=== PATIENT | male | born 1985 | race Hispanic/Latino ===

== ENCOUNTER 2017-01-21 19:30 | Emergency (ER) | payer BC, SELFPAY ==
--- NOTE | 2017-01-21 19:39 | ED.PDOC ---
History of Present Illness - General Chief Complaint: Fever Stated Complaint: fever and headache Time Seen by Provider: 01/21/17 19:36 Source: patient, RN notes reviewed, Vital Signs reviewed Exam Limitations: no limitations Additional Information: Patient with several days of URI symptoms. Pt is nontoxic and in no respiratory distress. He has tried some [place] for relief and Tylenol - last dose at 0900. Pt tolerating PO. - History of Present Illness Timing/Duration: 1 week - about 5 to 7 days Severity: mild Improving Factors: medication Worsening Factors: nothing Associated Symptoms: cough, fever/chills, malaise Allergies/Adverse Reactions: Allergies Ibuprofen [From Advil] Allergy (Verified 01/21/17 19:43) Naproxen [From Aleve] Allergy (Verified 01/21/17 19:43) Home Medications: Ambulatory Orders NK [NK] 01/21/17 Review of Systems - Review of Systems Constitutional: States: chills, fever EENTM: States: nose congestion, throat pain Respiratory: States: cough - , occasional Cardiology: States: no symptoms reported Gastrointestinal/Abdominal: States: no symptoms reported Genitourinary: States: no symptoms reported Musculoskeletal: States: no symptoms reported Skin: States: no symptoms reported Neurological: States: no symptoms reported Endocrine: States: no symptoms reported Hematologic/Lymphatic: States: no symptoms reported Family Medical History - Family History Mother Family History: No Known Living Status: Still Living Father Family History: No Known Living Status: Still Living Physical Exam - Physical Exam General Appearance: Alert, Comfortable, No apparent distress, Well Developed, Well Groomed, Well Hydrated, Well Nourished Eye Exam: bilateral normal Ears, Nose, Throat: hearing grossly normal, abnormal TM (R) - slightly erythematous. Not bulging. No pus behind eardrum., sinus pain/drainage, nasal congestion, other - postnasal drip on exam. 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 Stable for discharge home with recommendation for Pt to take Tylenol Cold and Sinus for symptom management. Pt given strict return precautions. - Results/Orders Results/Orders: Microbiology 01/21/17 19:35 Nose - Final Rapid Flu negative 01/21/17 01/21/17 01/21/17 19:35 20:46 21:10 Temperature 99.5 F Pulse Rate [ 69 76 75 monitor] Respiratory 18 18 18 Rate Blood Pressure 131/77 115/75 110/72 [Right Arm] O2 Sat by Pulse 97 95 95 Oximetry Departure - Departure Clinical Impression: Upper respiratory infection Qualifiers: URI type: unspecified viral URI Qualified Code(s): J06.9 - Acute upper respiratory infection, unspecified Time of Disposition: 21:10 Disposition: Discharge to Home or Self Care Condition: Good Departure Forms: ED Discharge - Pt. Copy, Patient Portal Self Enrollment Instructions: DI for Viral Upper Respiratory Infection -- Adult Referrals: Gisela Hernandez NP [Primary Care Provider] - 1-2 Weeks Home Medications: Ambulatory Orders NK [NK] 01/21/17 Additional Instructions: Stay well hydrated. Use Tylenol cold and sinus as directed on label.
[2017-01-21 19:43] VITALS: TEMP 99.5
[2017-01-21] MEDS ORDERED: DEXAMETHASONE INJ 10 MG/ML VIAL IM ONE (19:55)
[2017-01-21 20:47] VITALS: O2SAT 95
[2017-01-21 23:10] VITALS: BP 110/72
== END 2017-01-21 21:10 | disposition home or self-care (01) ==
LOC: ER 19:30
DX: J06.9 Acute upper respiratory infection, unspecified (principal); Z88.6 Allergy status to analgesic agent
CPT/HCPCS: 87502; J1100

== ENCOUNTER 2017-12-18 22:00 | Emergency (ER) | payer BC ==
--- NOTE | 2017-12-18 22:22 | ED.PDOC ---
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 HE HAS NOT EXPERIENCED ANY EXERTIONAL CHEST PAIN - History of Present Illness Timing/Duration: 4-6 hours Severity: mild Improving Factors: nothing Worsening Factors: nothing Associated Symptoms: chest pain Allergies/Adverse Reactions: Allergies Ibuprofen [From Advil] Allergy (Verified 12/18/17 23:29) Naproxen [From Aleve] Allergy (Verified 12/18/17 23:29) Home Medications: Ambulatory Orders NK [NK] 01/21/17 Review of Systems - Review of Systems Constitutional: States: no symptoms reported EENTM: States: no symptoms reported Respiratory: States: no symptoms reported Cardiology: States: see HPI Gastrointestinal/Abdominal: States: no symptoms reported Genitourinary: States: no symptoms reported Musculoskeletal: States: no symptoms reported Skin: States: no symptoms reported Neurological: States: no symptoms reported Endocrine: States: no symptoms reported Past Medical History (General) - Patient Medical History Hx Seizures: No Hx Stroke: No Hx Dementia: No Hx Asthma: No Hx of COPD: No Hx Cardiac Disorders: No Hx Congestive Heart Failure: No Hx Pacemaker: No Hx Hypertension: No Hx Thyroid Disease: No Hx Diabetes: No Hx Gastroesophageal Reflux: No Hx Renal Disease: No Hx Cancer: No Hx of HIV: No Hx Hepatitis C: No Hx MRSA: No - Vaccination History Hx Tetanus, Diphtheria Vaccination: No Hx Influenza Vaccination: No - Social History Hx Tobacco Use: No Hx Chewing Tobacco Use: No Hx Alcohol Use: Yes - social Hx Substance Use: No Hx Substance Use Treatment: No Hx Depression: No Hx Physical Abuse: No Hx Emotional Abuse: No Hx Suspected Abuse: No Family Medical History - Family History Mother Family History: No Known Living Status: Still Living Father Family History: No Known Living Status: Still Living Physical Exam - Physical Exam General Appearance: Alert, Comfortable Ears, Nose, Throat: hearing grossly normal, normal ENT inspection, normal pharynx Neck: non-tender, full range of motion, supple Respiratory: chest non-tender, lungs clear, normal breath sounds, no respiratory distress, no accessory muscle use Cardiovascular/Chest: normal peripheral pulses, regular rate, rhythm, no edema, no gallop, no JVD, no murmur Peripheral Pulses: radial,right: 2+, radial,left: 2+, femoral,right: 2+, femoral ,left: 2+, popliteal,right: 2+, popliteal,left: 2+, dorsalis pedis,right: 2+, dorsalis pedis,left: 2+, posterior tibialis,right: 2+, posterior tibialis,left: 2+ Gastrointestinal/Abdominal: normal bowel sounds, non tender, soft, no organomegaly, no pulsatile mass Back Exam: normal inspection, no CVA tenderness, no vertebral tenderness Extremity: normal range of motion, non-tender, normal inspection, no pedal edema 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, no motor/sensory deficits, alert, normal mood/affect, oriented x 3 Progress - Results/Orders Results/Orders: EKG NSR RATE 65 / MIN NO ACUTE ST T CHANGES NORMAL AXIS KS 148 MS RATE 65 / MIN QRS 90 MS Laboratory Tests 12/18/17 22:38 WBC 8.0 RBC 4.61 L Hgb 13.8 L Hct 40.2 L MCV 87.1 MCH 29.9 MCHC 34.3 RDW 13.2 Plt Count 324 MPV 7.3 L Absolute Neuts (auto) 3.70 Absolute Lymphs (auto) 3.00 Absolute Monos (auto) 0.80 Absolute Eos (auto) 0.50 H Absolute Basos (auto) 0.10 Neutrophils % 45.7 Lymphocytes % 37.2 Monocytes % 10.4 H Eosinophils % 5.9 H Basophils % 0.8 PT 10.7 INR 1.07 PTT (SP) 27.9 Sodium 143 Potassium 3.7 Chloride 109 Carbon Dioxide 28 Anion Gap 9.7 L BUN 17 Creatinine 0.79 BUN/Creatinine Ratio 21.5 H Random Glucose 112 H Serum Osmolality 287.3 Calcium 9.2 Magnesium 2.1 Total Bilirubin 0.3 Direct Bilirubin < 0.1 Indirect Bilirubin 0.2 AST 26 ALT 30 Alkaline Phosphatase 103 Creatine Kinase 310 H* CK-MB (CK-2) 2.3 CK-MB (CK-2) % Not Reportable Troponin I < 0.02 Serum Total Protein 7.3 Albumin 4.0 - EKG/XRAY/CT EKG: Sinus Departure - Departure Clinical Impression: Chest pain, Intermittent palpitations Time of Disposition: 00:17 Disposition: Discharge to Home or Self Care Condition: Good Departure Forms: ED Discharge - Pt. Copy, Patient Portal Self Enrollment Instructions: DI for Chest Pain Diet: low fat, low cholesterol Referrals: Yanni Flores NP [Primary Care Provider] - 1-2 Weeks Home Medications: Ambulatory Orders NK [NK] 01/21/17
[2017-12-18] MEDS ORDERED: LORazepam 0.5 MG TAB PO ONE (22:25)
[2017-12-18] MEDS ORDERED: ASPIRIN (CHEWABLE) 81 MG TAB PO ONE (22:26)
--- NOTE | 2017-12-18 22:39 | RAD ---
EXAM DESCRIPTION: Chest,1 View CLINICAL HISTORY: 32 years Male R/O PNEUMONIA COMPARISON: None. FINDINGS: The cardiomediastinal silhouette appears unremarkable. No consolidating infiltrates or pleural effusions. No pneumothorax. IMPRESSION: No acute abnormality is identified. Electronically signed by: Heron Johnson MD 12/18/2017 10:38 PM CDT
[2017-12-19 00:21] VITALS: BP 113/67; TEMP 98; O2SAT 100
== END 2017-12-19 00:26 | disposition home or self-care (01) ==
LOC: ER 22:00
DX: R07.9 Chest pain, unspecified (principal); R00.2 Palpitations; R20.0 Anesthesia of skin; Z88.6 Allergy status to analgesic agent; Z82.49 Family history of ischemic heart disease and other diseases of the circulatory system

== ENCOUNTER 2018-05-29 14:22 | Emergency (ER) | payer BC, OTHER ==
[2018-05-29 14:40] VITALS: TEMP 97.2
[2018-05-29] MEDS ORDERED: LIDOCAINE 1% W/ EPINEPHRINE 20 ML VIAL INJ ONE (14:47)
--- NOTE | 2018-05-29 14:52 | ED.PDOC ---
History of Present Illness - General Chief Complaint: Laceration Stated Complaint: laceration to head Time Seen by Provider: 05/29/18 14:49 Source: patient Exam Limitations: no limitations - History of Present Illness Initial Comments: Patient says he was at work and hit his head on a metal beam. He did not fall down nor lose consciousness but he sustained a laceration on the apex of the head. It was bleeding a lot at first but has since stopped. He says he feels light-headed. No N/V. No other complaints. Timing/Duration: 1/2 hour Severity: moderate Improving Factors: nothing Worsening Factors: nothing Associated Symptoms: other - as in HPI Allergies/Adverse Reactions: Allergies Ibuprofen [From Advil] Allergy (Verified 12/18/17 23:29) Naproxen [From Aleve] Allergy (Verified 12/18/17 23:29) Home Medications: Ambulatory Orders Atorvastatin Calcium [Lipitor] 20 mg PO DAILY 05/29/18 Fluoxetine HCl [Prozac] 40 mg PO DAILY 05/29/18 Testosterone Cypionate 200 mg IM MONTHLY 05/29/18 Review of Systems - Review of Systems Constitutional: States: no symptoms reported EENTM: States: no symptoms reported Respiratory: States: no symptoms reported Cardiology: States: no symptoms reported Gastrointestinal/Abdominal: States: no symptoms reported Genitourinary: States: no symptoms reported Musculoskeletal: States: no symptoms reported Skin: States: see HPI Neurological: States: see HPI Endocrine: States: no symptoms reported Hematologic/Lymphatic: States: no symptoms reported Past Medical History (General) - Patient Medical History Hx Seizures: No Hx Stroke: No Hx Dementia: No Hx Asthma: No Hx of COPD: No Hx Cardiac Disorders: No Hx Congestive Heart Failure: No Hx Pacemaker: No Hx Hypertension: No Hx Thyroid Disease: No Hx Diabetes: No Hx Gastroesophageal Reflux: No Hx Renal Disease: No Hx Cancer: No Hx of HIV: No Hx Hepatitis C: No Hx MRSA: No Surgical History: no surgical history - Vaccination History Hx Tetanus, Diphtheria Vaccination: No Hx Influenza Vaccination: No - Social History Hx Tobacco Use: No Hx Chewing Tobacco Use: No Hx Alcohol Use: Yes - social Hx Substance Use: No Hx Substance Use Treatment: No Hx Depression: No Hx Physical Abuse: No Hx Emotional Abuse: No Hx Suspected Abuse: No Family Medical History - Family History Mother Family History: No Known Living Status: Still Living Father Family History: No Known Living Status: Still Living Physical Exam - Physical Exam General Appearance: Alert Eye Exam: bilateral normal Ears, Nose, Throat: hearing grossly normal, normal ENT inspection Neck: non-tender, full range of motion, supple Respiratory: lungs clear, normal breath sounds Cardiovascular/Chest: normal peripheral pulses, regular rate, rhythm, no edema Gastrointestinal/Abdominal: normal bowel sounds, non tender, soft Back Exam: normal inspection, no CVA tenderness Extremity: normal range of motion, non-tender, normal inspection 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 Hemostatic. Gala aponeurotica intact. No visible bone. Lymphatic: no adenopathy Progress - Progress Progress: 05/29/18 16:00 Area was prepped and draped in a sterile fashion. 7 cc of lidocaine with epinephrine was used to gain excellent local anesthesia. Irrigated with 30 cc sterile NS. 10 interrupted sutures using 4-0 proline were used to gain good wound edge approximation. Area was clean dry and hemostatic upon completion. Patient tolerated procedure well. CT head negative. Likely a Grade I concussion. E.R. warnings given. Care instructions given. Questions were elicited and answered. The patient voiced understanding and agreement with the plan. Departure - Departure Clinical Impression: Laceration, Concussion Disposition: Discharge to Home or Self Care Condition: Good Departure Forms: ED Discharge - Pt. Copy, Patient Portal Self Enrollment Instructions: DI for Laceration Repair, Concussion, Adult (DC) Diet: resume usual diet Activity: increase activity as tolerated Referrals: Yanni Flores NP [Primary Care Provider] - 1-2 Weeks Home Medications: Ambulatory Orders Atorvastatin Calcium [Lipitor] 20 mg PO DAILY 05/29/18 Fluoxetine HCl [Prozac] 40 mg PO DAILY 05/29/18 Testosterone Cypionate 200 mg IM MONTHLY 05/29/18 Additional Instructions: Tylenol and ice only for pain control. See your regular doctor or return to the E.R. in 10 days for suture removal. Return to the E.R. immediately for vomiting more than one time or if you develop new symptoms. Return to your regular doctor for a neurological check if symptoms are still present this weekend. If symptoms last more than one week, return to the E.R. for possible head imaging.
--- NOTE | 2018-05-29 15:23 | CT ---
EXAM DESCRIPTION: Head CLINICAL HISTORY: blunt trauma to skull COMPARISON: None available TECHNIQUE: Multiple axial images of the head without contrast. Multiplanar reformatted images. This exam was performed according to our departmental dose-optimization program, which includes automated exposure control, adjustment of the mA and/or kV according to patient size and/or use of iterative reconstruction technique. FINDINGS: There is no CT evidence of intracranial hemorrhage, mass effect, or large territory infarction. The brain parenchyma and ventricles are normal. There are no abnormal extra-axial fluid collections. Vascular structures are unremarkable. There is no acute calvarial defect. The visualized paranasal sinuses and the mastoids are clear. IMPRESSION: No CT evidence of an acute intracranial abnormality. Electronically signed by: Eliseo Cervantes MD 05/29/2018 3:22 PM [facility]
[2018-05-29] MEDS: TETANUS,DIPHTHERIA,PERTUSSIS 1 EA SYG IM ONE (15:48)
[2018-05-29] MEDS ORDERED: NEOMYCIN-BACITRACIN-POLYMYXIN 0.9 GM UD TOP ONE (15:48)
[2018-05-29 16:28] VITALS: BP 122/80; O2SAT 98
== END 2018-05-29 16:37 | disposition home or self-care (01) ==
LOC: ER 14:22
DX: S01.01XA Laceration without foreign body of scalp, initial encounter (principal); S06.0X0A Concussion without loss of consciousness, initial encounter; W22.09XA Striking against other stationary object, initial encounter; Y99.0 Civilian activity done for income or pay; Y92.69 Other specified industrial and construction area as the place of occurrence of the external cause; Z88.6 Allergy status to analgesic agent; Z23 Encounter for immunization

== ENCOUNTER 2018-06-12 20:01 | Emergency (ER) | payer OTHER ==
--- NOTE | 2018-06-12 20:26 | ED.PDOC ---
History of Present Illness - General Chief Complaint: Headache Stated Complaint: headache Time Seen by Provider: 06/12/18 20:06 Source: patient Exam Limitations: no limitations - History of Present Illness Initial Comments: Moody Hunt 33 y/o male with history of head contusion with scalp laceration after he stood up and head hit a metal beam sustaining laceration on his scalp which was treated here in ER and HEAD CT done on 29 may 2018 same as injury did not show acute intracranial abnormalities.Also after the incident had sharp intemittent headache at the vertex of his skull goes down to occipital area felt nauseated no vomiting,gets agitated easily and problems with sleep and concentration.Has scheduled MRI-Head tomorrow 13 June 2018 at 1330H Timing/Duration: other - 2 weeks Quality: moderate, sharp Head Injury Location: frontal Recent Head Trauma: occasional headaches, head trauma > 24 hrs ago Improving Factors: nothing Worsening Factors: nothing Associated Symptoms: other - see hpi Allergies/Adverse Reactions: Allergies Ibuprofen [From Advil] Allergy (Verified 12/18/17 23:29) Naproxen [From Aleve] Allergy (Verified 12/18/17 23:29) Home Medications: Ambulatory Orders Atorvastatin Calcium [Lipitor] 20 mg PO DAILY 05/29/18 Fluoxetine HCl [Prozac] 40 mg PO DAILY 05/29/18 Testosterone Cypionate 200 mg IM MONTHLY 05/29/18 Review of Systems - Review of Systems Constitutional: States: no symptoms reported EENTM: States: no symptoms reported Respiratory: States: no symptoms reported Cardiology: States: no symptoms reported Gastrointestinal/Abdominal: States: no symptoms reported Genitourinary: States: no symptoms reported Musculoskeletal: States: no symptoms reported Skin: States: no symptoms reported Neurological: States: no symptoms reported Endocrine: States: no symptoms reported All other Systems: Reviewed and Negative, No Change from Baseline Past Medical History (General) - Patient Medical History Hx Seizures: No Hx Stroke: No Hx Dementia: No Hx Asthma: No Hx of COPD: No Hx Cardiac Disorders: No Hx Congestive Heart Failure: No Hx Pacemaker: No Hx Hypertension: No Hx Thyroid Disease: No Hx Diabetes: No Hx Gastroesophageal Reflux: No Hx Renal Disease: No Hx Cancer: No Hx of HIV: No Hx Hepatitis C: No Hx MRSA: No Surgical History: no surgical history - Vaccination History Hx Tetanus, Diphtheria Vaccination: No Hx Influenza Vaccination: No - Social History Hx Tobacco Use: No Hx Chewing Tobacco Use: No Hx Alcohol Use: Yes - social Hx Substance Use: No Hx Substance Use Treatment: No Hx Depression: No Hx Physical Abuse: No Hx Emotional Abuse: No Hx Suspected Abuse: No Family Medical History - Family History Mother Family History: No Known Living Status: Still Living Hx Cardiac Disease: Yes - dad Father Family History: No Known Living Status: Still Living Physical Exam - Physical Exam General Appearance: Alert, Comfortable, No apparent distress Eyes, Ears, Nose, Throat Exam: PERRL/EOMI, normal ENT inspection, TMs normal, pharynx normal Neck: non-tender, full range of motion, supple, normal inspection, trachea midline Cardiovascular/Chest: normal peripheral pulses, regular rate, rhythm, no murmur Respiratory: lungs clear, normal breath sounds Gastrointestinal/Abdominal: non tender, soft, no organomegaly Back Exam: no CVA tenderness, no vertebral tenderness Extremity: no pedal edema, no calf tenderness 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, 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 Exam: normal hearing, normal speech, PERRL Coordination/Gait: negative Romberg's sign Motor/Sensory: no motor deficit, no sensory deficit, no pronator drift Skin Exam: warm/dry, normal color Progress - Progress Progress: 06/12/18 20:28 Vital Signs - 8 hr 06/12/18 20:13 Temperature 98.2 F Pulse Rate [ 69 Right] Respiratory 16 Rate Blood Pressure 117/81 [Left Arm] O2 Sat by Pulse 98 Oximetry 06/12/18 20:50 Patient was noted to be able to use mobile device Departure - Departure Clinical Impression: Post-concussion headache, History of closed head injury Time of Disposition: 20:46 Disposition: Discharge to Home or Self Care Condition: Fair Departure Forms: ED Discharge - Pt. Copy, Patient Portal Self Enrollment Instructions: DI for Headache, Concussion in Adults, Concussion, Adult (DC) Referrals: Yanni Flores NP [Primary Care Provider] - 1-2 Weeks Home Medications: Ambulatory Orders Atorvastatin Calcium [Lipitor] 20 mg PO DAILY 05/29/18 Fluoxetine HCl [Prozac] 40 mg PO DAILY 05/29/18 Testosterone Cypionate 200 mg IM MONTHLY 05/29/18 Additional Instructions: follow up with primary Md 14 June 2018 for recheck;may take Melatonin-10 mg (over the counter) at bedtime for sleep and continue with Doxylamine as directed; MRI-Head tomorrow as scheduled
[2018-06-12] MEDS ORDERED: PROMETHAZINE HCL INJ 25 MG/ML VIAL IM ONE (20:29)
[2018-06-12] MEDS ORDERED: DEXAMETHASONE INJ 10 MG/ML VIAL IM ONE (20:29)
[2018-06-12] MEDS ORDERED: BUTORPHANOL TARTRATE 2 MG/ML VIAL IM ONE (20:29)
[2018-06-12] MEDS ORDERED: HYDROCOD/APAP 5/325 (ER DISP) #3 TAB PO ONE (20:45)
[2018-06-12 21:06] VITALS: BP 111/73; TEMP 97.9; O2SAT 99
== END 2018-06-12 21:05 | disposition home or self-care (01) ==
LOC: ER 20:01
DX: G44.309 Post-traumatic headache, unspecified, not intractable (principal); F07.81 Postconcussional syndrome; Z88.6 Allergy status to analgesic agent
CPT/HCPCS: J0595; J1100; J2550

== ENCOUNTER → 2018-06-13 | Outpatient (CLI) | payer OTHER ==
--- NOTE | 2018-06-13 16:17 | MRI ---
EXAM DESCRIPTION: Brain w/o Contrast: MRI. CLINICAL HISTORY: F07.81 COMPARISON: CT scan of the head 05/29/2018. TECHNIQUE: Multiplanar, high-field MRI unit, multiple diffusion sequences, multiple conventional sequences without contrast. FINDINGS: Focal hyperintense FLAIR and T2-weighted signal in the left frontal subcortical white matter and the anterior right parietal subcortical white matter and posterior right frontal subcortical white matter. These foci are not associated with hemorrhage, mass effect, or diffusion restriction. There also may be a small periventricular white matter and lesion associated with the inferior right frontal horn. No hemorrhage, no cerebral edema, no mass effect, associated with bilateral cerebral hemisphere [place] matter and white matter. Normal signal in the bilateral basal ganglia. Normal signal in the brainstem and cerebellar hemispheres. No hemorrhage, no cerebral edema, no mass-effect. No diffusion restriction. Concordance of the diffusion and non-diffusion sequences with no diffusion restriction. Cortical sulci, ventricles, and other CSF spaces, and the subdural spaces are normally configured. No effacement or displacement. No midline shift. No extra-axial hemorrhage. Normal flow signal void in the major vessels of the native [place], and the venous sinuses. IACs are symmetric bilaterally. Normal signal in the bilateral mastoid air cells. No mass effect in the bilateral cerebellopontine angles. Pituitary gland occupies most of the sella. Base of the cerebellar tonsils is at the level of the foramen magnum. Polyp or mucous retention cyst on the medial wall of the inferior right maxillary antrum.. The bony calvarium is intact. IMPRESSION: 1. Small bilateral foci of white matter signal change. Not associated with hemorrhage, mass effect, or diffusion restriction. Differential includes sequela of migraines, demyelinating process, vasculitis, or early cerebral microvascular disease. Consider follow-up scan with gadolinium IV contrast. 2. Normal noncontrast MRI diffusion study with no evidence of acute or subacute infarction. 3. Polyp or cyst partially visualized on the inferior medial wall of the right maxillary antrum. Electronically signed by: Adrian Childress MD 06/13/2018 4:16 PM [employer]
== END ==
LOC: MRI 13:14
PROVIDERS: ATTEND General Practice
DX: F07.81 Postconcussional syndrome (principal)

== ENCOUNTER 2018-07-02 15:12 | Emergency (ER) | payer BC, OTHER ==
[2018-07-02] MEDS ORDERED: ONDANSETRON INJ 4 MG/2 ML VIAL IV ONE (15:54)
[2018-07-02] MEDS ORDERED: MORPHINE SULFATE INJ 10 MG/ML VIAL IV ONE (15:54)
--- NOTE | 2018-07-02 16:26 | RAD ---
EXAM DESCRIPTION: Chest,1 View CLINICAL HISTORY:33 years Male, CHEST PAIN Comparison: December 18, 2017 FINDINGS: No focal lung consolidation. No pleural effusion. No pneumothorax. Cardiac and mediastinal silhouette is unremarkable. No acute osseous abnormality. Soft tissues are unremarkable. IMPRESSION: No acute findings. No focal lung consolidation. Electronically signed by: Luis Astorga MD 07/02/2018 4:23 PM OFFICE ADMIN
--- NOTE | 2018-07-02 16:29 | CT ---
Study: CT cervical spine. Indication: LEFT ARM PAIN, HX OF RECENT HEAD INJURY Technique: Axial CT images were acquired through the cervical spine without intravenous contrast. Coronal and sagittal reformats performed. This exam was performed according to our departmental dose-optimization program, which includes automated exposure control, adjustment of the mA and/or kV according to patient size and/or use of iterative reconstruction technique. Comparison: None. Findings: Vertebral body height maintained. No acute fracture or subluxation. Multilevel cervical disc disease noted and most pronounced at C3-C4 where there is mild disc space height loss and a small disc osteophyte complex producing at least mild spinal canal narrowing. Minimal kyphosis centered at this level as well. Impression: No acute cervical fracture. Mild spinal canal narrowing suspected at C3-C4. Dedicated MRI could better evaluate as clinically indicated. Mild kyphosis centered at C3-C4. Electronically signed by: Reyes Causey MD 07/02/2018 4:26 PM [facility]
[2018-07-02 17:07] VITALS: O2SAT 96
--- NOTE | 2018-07-02 17:20 | ED.PDOC ---
History of Present Illness - General Chief Complaint: Chest Pain/WV Stated Complaint: chest pain, GRANT, left arm numbness Time Seen by Provider: 07/02/18 15:53 Source: patient Exam Limitations: no limitations - History of Present Illness Initial Comments: THIS PATIENT COMES TO THE ED WITH CHEST PAIN AND LEFT ARM PAIN AND NUMBNESS. HE TELLS ME THAT ON MAY 29 HE SUFFERED A HEAD INJURY WHILE AT WORK. SINCE THEN HE HAS HAD BAD HEADACHES AND NOW CHEST PAINS. HE HAS HAD A CT OF THE CHEST WHICH WAS NEGATIVE. BECAUSE OF THE WORSENING GRANT'S HE HAD AN MRI WHICH ALSO WAS NEGATIVE AND NOW ON IMITIREX TABS DAILY FOR THE GRANT'S. HEHAS BEEN SEEN BY HIS PCP FOR THE CHEST PAIN BUT NOW IT IS HIS LEFT ARM THAT HURTS 9/10, MOSTLY ON THE SHOULDER. THE PAIN RADIATES ALL THE WAY TO THE HAND. HE REQUESTS PAIN MEDICINES. Allergies/Adverse Reactions: Allergies Ibuprofen [From Advil] Allergy (Verified 12/18/17 23:29) Naproxen [From Aleve] Allergy (Verified 12/18/17 23:29) Home Medications: Ambulatory Orders Atorvastatin Calcium [Lipitor] 20 mg PO DAILY 05/29/18 Fluoxetine HCl [Prozac] 40 mg PO DAILY 05/29/18 Testosterone Cypionate 200 mg IM MONTHLY 05/29/18 Diclofenac Sodium [Diclofenac Sodium Dr] 50 mg PO BID #20 tab 07/02/18 Sumatriptan Succinate 50 mg PO Q6H PRN 07/02/18 Review of Systems - Review of Systems Constitutional: States: no symptoms reported EENTM: States: no symptoms reported Respiratory: States: short of breath Cardiology: States: chest pain Gastrointestinal/Abdominal: States: no symptoms reported Genitourinary: States: no symptoms reported Musculoskeletal: States: joint pain Skin: States: no symptoms reported Neurological: States: headache, tingling Endocrine: States: no symptoms reported Hematologic/Lymphatic: States: no symptoms reported Past Medical History (General) - Patient Medical History Hx Seizures: No Hx Stroke: No Hx Dementia: No Hx Asthma: No Hx of COPD: No Hx Cardiac Disorders: No Hx Congestive Heart Failure: No Hx Pacemaker: No Hx Hypertension: No Hx Thyroid Disease: No Hx Diabetes: No Hx Gastroesophageal Reflux: No Hx Renal Disease: No Hx Cancer: No Hx of HIV: No Hx Hepatitis C: No Hx MRSA: No - Vaccination History Hx Tetanus, Diphtheria Vaccination: No Hx Influenza Vaccination: No - Social History Hx Tobacco Use: No Hx Chewing Tobacco Use: No Hx Alcohol Use: Yes - social Hx Substance Use: No Hx Substance Use Treatment: No Hx Depression: No Hx Physical Abuse: No Hx Emotional Abuse: No Hx Suspected Abuse: No Family Medical History - Family History Mother Family History: No Known Living Status: Still Living Hx Cardiac Disease: Yes - dad Father Family History: No Known Living Status: Still Living Physical Exam - Physical Exam General Appearance: Alert, Well Developed, Well Groomed, Well Hydrated, Well Nourished Eyes, Ears, Nose, Throat Exam: PERRL/EOMI, normal ENT inspection Neck: non-tender, full range of motion, supple Respiratory: chest non-tender, lungs clear, normal breath sounds, no respiratory distress, no accessory muscle use Cardiovascular/Chest: normal peripheral pulses, regular rate, rhythm, no edema, no gallop Peripheral Pulses: radial,right: 2+, radial,left: 2+ Gastrointestinal/Abdominal: normal bowel sounds, non tender, soft, no organomegaly Rectal Exam: deferred Extremity: other - THE LEFT HAND IS WEAKER THATN THE RIGHT 3/5 MOTOR STRENGTH AND 5/5 ON THE RIGHT, MOVES THE ARM W/O ANY PROBLEM. THERE IS PAIN TO THE SHOULDER AREA BUT NO DEFORMITY. Neurologic: normal mood/affect, oriented x 3 Skin Exam: normal color Lymphatic: no adenopathy Progress - Results/Orders Results/Orders: 07/02/18 15:18 TROPONIN-I Stat 07/02/18 16:00 EKG STAT Laboratory Results WBC 7.7 K/mm3 (4.8-10.8) 07/02/18 15:18 RBC 5.01 M/mm3 (4.70-6.10) 07/02/18 15:18 Hgb 14.9 gm/dL (14.0-18.0) 07/02/18 15:18 Hct 44.5 % (42.0-52.0) 07/02/18 15:18 MCV 88.8 fl (80.0-94.0) 07/02/18 15:18 MCH 29.7 pg (27.0-31.0) 07/02/18 15:18 MCHC 33.4 g/dL (33.0-37.0) 07/02/18 15:18 RDW 13.9 % (11.5-14.5) 07/02/18 15:18 Plt Count 345 K/mm3 (130-400) 07/02/18 15:18 MPV 7.8 fl (7.40-10.4) 07/02/18 15:18 Absolute Neuts (auto) 3.40 K/uL (1.8-6.8) 07/02/18 15:18 Absolute Lymphs (auto) 3.20 K/uL (1.0-3.4) 07/02/18 15:18 Absolute Monos (auto) 0.70 K/uL (0.2-0.8) 07/02/18 15:18 Absolute Eos (auto) 0.30 K/uL (0.0-0.4) 07/02/18 15:18 Absolute Basos (auto) 0.00 K/uL (0.0-0.1) 07/02/18 15:18 Neutrophils % 44.7 % (42.0-78.0) 07/02/18 15:18 Lymphocytes % 41.2 % (20.0-50.0) 07/02/18 15:18 Monocytes % 9.5 % (2.0-9.0) H 07/02/18 15:18 Eosinophils % 4.2 % (1.0-5.0) 07/02/18 15:18 Basophils % 0.4 % (0.0-2.0) 07/02/18 15:18 Sodium 137 mmol/L (135-145) 07/02/18 15:18 Potassium 3.6 mmol/L (3.6-5.0) 07/02/18 15:18 Chloride 101 mmol/L (101-111) 07/02/18 15:18 Carbon Dioxide 26 mmol/L (21-31) 07/02/18 15:18 Anion Gap 13.6 (12-18) 07/02/18 15:18 BUN 19 mg/dL (7-18) H 07/02/18 15:18 Creatinine 0.93 mg/dL (0.6-1.3) 07/02/18 15:18 BUN/Creatinine Ratio 20.4 (10-20) H 07/02/18 15:18 Random Glucose 118 mg/dL (70-105) H 07/02/18 15:18 Serum Osmolality 277.2 mOsm/L (275-295) 07/02/18 15:18 Calcium 9.1 mg/dL (8.4-10.2) 07/02/18 15:18 Total Bilirubin 0.3 mg/dL (0.2-1.0) 07/02/18 15:18 AST 27 IU/L (10-42) 07/02/18 15:18 ALT 33 IU/L (10-60) 07/02/18 15:18 Alkaline Phosphatase 105 IU/L (42-121) 07/02/18 15:18 Serum Total Protein 7.9 gm/dL (6.4-8.2) 07/02/18 15:18 Albumin 4.3 g/dl (3.2-5.5) 07/02/18 15:18 Globulin 3.6 gm/dL (2.3-3.5) H 07/02/18 15:18 Albumin/Globulin Ratio 1.2 (1.1-1.9) 07/02/18 15:18 THE CHEST X-RAY IS NEGATIVE FOR ACUTE PROCESS THE CT OF THE CERVICAL SPINE WITH MULTI-LEVEL DISC DISEASE MORE PRONOUNCED AT THE C3-C4 LEVEL. Departure - Departure Clinical Impression: Post concussion syndrome, Atypical chest pain Arm pain Qualifiers: Laterality: left Qualified Code(s): M79.602 - Pain in left arm Time of Disposition: 18:07 Disposition: Discharge to Home or Self Care Departure Forms: ED Discharge - Pt. Copy, Patient Portal Self Enrollment Instructions: DI for Chest Pain Referrals: Yanni Flores NP [Primary Care Provider] - 1-2 Weeks Prescriptions: Diclofenac Sodium [Diclofenac Sodium Dr] 50 mg PO BID #20 tab Home Medications: Ambulatory Orders Atorvastatin Calcium [Lipitor] 20 mg PO DAILY 05/29/18 Fluoxetine HCl [Prozac] 40 mg PO DAILY 05/29/18 Testosterone Cypionate 200 mg IM MONTHLY 05/29/18 Diclofenac Sodium [Diclofenac Sodium Dr] 50 mg PO BID #20 tab 07/02/18 Sumatriptan Succinate 50 mg PO Q6H PRN 07/02/18
[2018-07-02 18:26] VITALS: BP 108/72; TEMP 97.8
== END 2018-07-02 18:24 | disposition home or self-care (01) ==
LOC: ER 15:12
DX: R07.89 Other chest pain (principal); F07.81 Postconcussional syndrome; M79.602 Pain in left arm; R20.0 Anesthesia of skin; Z88.6 Allergy status to analgesic agent
CPT/HCPCS: 71045; 72125; 80053; 84484; 85025; 93005; J2060; J2270; J2405

== ENCOUNTER → 2018-08-21 | Outpatient (CLI) | payer OTHER ==
--- NOTE | 2018-08-21 13:11 | MRI ---
EXAM DESCRIPTION: Cervical Spine CLINICAL HISTORY: M50.10 COMPARISON: Compared to previous CT of the cervical spine July 02, 2018 TECHNIQUE: MRI of the cervical spine is performed according to our usual protocol. FINDINGS: Sagittal T2 images reveal decreased signal intensity within the intervertebral discs consistent with disc desiccation. There is reversal of the normal cervical lordosis. Normal T2 appearance of the cervical cord. Posterior discal abnormality is most prominent at the C3-4 disc levels. Sagittal T1 images show benign marrow signal characteristics. Normal T1 appearance of the cervical and upper thoracic spinal cord. Normal alignment of the vertebral bodies and facets. Sagittal STIR images are negative for high signal intensity marrow edema within the vertebral bodies or posterior elements. No paraspinous fluid collection or cystic lesion. Axial images were obtained to evaluate the disc levels. C2-3: Normal posterior disc margin with no spinal stenosis or neural foraminal narrowing. Facets appear normal. Normal appearance of the cord at this level. C3-4: Posterior discal abnormality is noted consistent with asymmetric disc/osteophyte complex with midline and right lateral accentuation/protrusions measuring 3 mm each in AP dimension (axial image 22, series 701). There is mild ventral contouring. AP diameter of the spinal canal measures 9 mm. Mild facet hypertrophy with mild right neural foraminal narrowing. C4-5: Minimal posterior annular bulge with midline accentuation. No spinal stenosis or neural foraminal narrowing. Facets appear normal. Normal appearance of the cord at this level. C5-6: Mild midline posterior annular bulge without spinal stenosis or neural foraminal narrowing. Mild facet hypertrophy left more than right. Normal appearance of the cord at this level. C6-7: Normal posterior disc margin with no spinal stenosis or neural foraminal narrowing. Facet hypertrophic changes are mild. Normal appearance of the cord at this level. C7-T1: Normal posterior disc margin with no spinal stenosis or neural foraminal narrowing. Mild facet hypertrophy. Normal appearance of the cord at this level. IMPRESSION: Reversal of the normal cervical lordosis with asymmetric posterior discal abnormality at C3-4 with mild ventral cord contouring. Electronically signed by: Gavin Rosario MD 08/21/2018 1:08 PM CDT
== END ==
LOC: MRI 12:00
PROVIDERS: ATTEND Psychiatry & Neurology Neurology
DX: M50.10 Cervical disc disorder with radiculopathy, unspecified cervical region (principal)

== ENCOUNTER → 2018-11-28 | Outpatient (CLI) | payer BC | LOC: GMAL 10:42 | PROVIDERS: ATTEND Family Medicine | DX: E29.8 Other testicular dysfunction (principal); R53.82 Chronic fatigue, unspecified ==

== ENCOUNTER 2019-06-30 13:53 | Emergency (ER) | payer BC ==
[2019-06-30] MEDS ORDERED: SODIUM CHLORIDE 0.9% (FLUSH) 10 ML SYG IV PRN (14:12)
[2019-06-30] MEDS ORDERED: ONDANSETRON INJ 4 MG/2 ML VIAL IV ONE (14:12)
[2019-06-30] MEDS ORDERED: KETOROLAC TROMETHAMINE INJ 30 MG/ML VIAL IV ONE (14:12)
[2019-06-30] MEDS ORDERED: MORPHINE SULFATE INJ 10 MG/ML VIAL IV ONE ×2 (14:12→15:37)
[2019-06-30] MEDS ORDERED: SODIUM CHLORIDE 0.9% 1000ML 1,000 ML IVS ONE (14:13)
--- NOTE | 2019-06-30 15:03 | CT ---
EXAM DESCRIPTION: Abdomen/Pelvis w/o Contrast CLINICAL HISTORY: 34 years Male L lumbar pain TECHNIQUE: Axial noncontrast CT of the abdomen and pelvis. All CT scans at this facility use dose modulation, iterative reconstruction, and/or weight based dosing when appropriate to reduce radiation dose to as low as reasonably achievable. COMPARISON: None. FINDINGS: Lower chest: Lung bases are clear. Abdomen: Liver: No focal lesions. No intrahepatic ductal distention. Gallbladder: Small layering gallstones without gallbladder wall thickening or inflammatory change. Pancreas: Within normal limits Spleen: Within normal limits Right kidney: No hydronephrosis. No focal lesion. Left kidney: No hydronephrosis. No focal lesion. Adrenal glands: Within normal limits Vascular structures: Within normal limits Pelvis: Bowel: No significant distention. Appendix: Within normal limits Peritoneum: No free fluid or free air. Lymph Nodes: No adenopathy. Reproductive: Unremarkable. Urinary bladder: Unremarkable. Osseous structures: Symmetric sclerosis of the bilateral sacroiliac joints. Soft tissues: Unremarkable. IMPRESSION: 1. No acute intra-abdominal findings. 2. Cholelithiasis without acute cholecystitis. 3. 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 Differential includes ankylosing spondylitis, inflammatory bowel disease spondylitis, psoriatic arthritis, osteitis condensans ilii among others. Electronically signed by: Cade Ramos MD 06/30/2019 3:01 PM [facility]
--- NOTE | 2019-06-30 15:08 | ED.PDOC ---
History of Present Illness - General Chief Complaint: General Time Seen by Provider: 06/30/19 14:12 - History of Present Illness Initial Comments: c/o L flank/lumbar pain for few hours , non radiating , no problem with urinee , no nausea or vomiting or fever or chills Allergies/Adverse Reactions: Allergies Ibuprofen [From Advil] Adverse Reaction (Verified 07/02/19 14:58) Other Eyes swell Naproxen [From Aleve] Adverse Reaction (Verified 07/02/19 14:58) Other Eyes swell Home Medications: Ambulatory Orders Atorvastatin Calcium [Lipitor] 20 mg PO DAILY 05/29/18 Fluoxetine HCl [Prozac] 60 mg PO DAILY 05/29/18 Testosterone Cypionate 200 mg IM MONTHLY 05/29/18 Sumatriptan Succinate 50 mg PO Q6H PRN 07/02/18 Aripiprazole [Abilify] 2 mg PO DAILY 07/02/19 Aspirin [Aspirin Adult Low Dose] 81 mg PO DAILY 07/02/19 Clonazepam 1 mg PO TID 07/02/19 Gabapentin [Neurontin] 300 mg PO TID 07/02/19 levoFLOXacin [Levaquin] 500 mg PO DAILY 07/02/19 Review of Systems - Review of Systems Constitutional: States: no symptoms reported EENTM: States: no symptoms reported Respiratory: States: no symptoms reported Cardiology: States: no symptoms reported Gastrointestinal/Abdominal: States: see HPI Genitourinary: States: no symptoms reported Musculoskeletal: States: no symptoms reported Skin: States: no symptoms reported Neurological: States: no symptoms reported Endocrine: States: no symptoms reported Hematologic/Lymphatic: States: no symptoms reported Past Medical History (General) - Patient Medical History Hx Seizures: No Hx Stroke: No Hx Dementia: No Hx Asthma: No Hx of COPD: No Hx Cardiac Disorders: No Hx Congestive Heart Failure: No Hx Pacemaker: No Hx Hypertension: No Hx Thyroid Disease: No Hx Diabetes: No Hx Gastroesophageal Reflux: No Hx Renal Disease: No Hx Cancer: No Hx of HIV: No Hx Hepatitis C: No Hx MRSA: No - Vaccination History Hx Tetanus, Diphtheria Vaccination: No Hx Influenza Vaccination: No - Social History Hx Tobacco Use: No Hx Chewing Tobacco Use: No Hx Alcohol Use: Yes - social Hx Substance Use: No Hx Substance Use Treatment: No Hx Depression: No Hx Physical Abuse: No Hx Emotional Abuse: No Hx Suspected Abuse: No Family Medical History - Family History Mother Family History: No Known Living Status: Still Living Hx Cardiac Disease: Yes - dad Father Family History: No Known Living Status: Still Living Physical Exam - Physical Exam General Appearance: Alert, Well Developed, Well Groomed, Well Hydrated, Well Nourished Eye Exam: bilateral normal Ears, Nose, Throat: hearing grossly normal, normal ENT inspection Neck: non-tender, full range of motion, supple, normal inspection Respiratory: chest non-tender, no respiratory distress, no accessory muscle use Cardiovascular/Chest: regular rate, rhythm Gastrointestinal/Abdominal: soft, no organomegaly, tenderness - R lumbar area Back Exam: normal inspection, no CVA tenderness, no vertebral tenderness Extremity: normal range of motion, non-tender, normal inspection, no pedal edema, no calf tenderness Neurologic: no motor/sensory deficits, alert, normal mood/affect, oriented x 3 Skin Exam: normal color, warm/dry Lymphatic: no adenopathy Progress - Progress Progress: During the visit saw the pt multiple time answer all the concern of the pt , reviewed labs and X-ray with the pt. Told the pt that if symptoms gets worse , please come back to ER Follow up PCP as soon as possible 07/02/19 22:52 - Results/Orders Results/Orders: Laboratory Results WBC 6.4 K/mm3 (4.8-10.8) 06/30/19 14:50 RBC 5.11 M/mm3 (4.70-6.10) 06/30/19 14:50 Hgb 15.2 gm/dL (14.0-18.0) 06/30/19 14:50 Hct 44.8 % (42.0-52.0) 06/30/19 14:50 MCV 87.7 fl (80.0-94.0) 06/30/19 14:50 MCH 29.6 pg (27.0-31.0) 06/30/19 14:50 MCHC 33.8 g/dL (33.0-37.0) 06/30/19 14:50 RDW 14.7 % (11.5-14.5) H 06/30/19 14:50 Plt Count 322 K/mm3 (130-400) 06/30/19 14:50 MPV 7.5 fl (7.40-10.4) 06/30/19 14:50 Absolute Neuts (auto) 2.90 K/uL (1.8-6.8) 06/30/19 14:50 Absolute Lymphs (auto) 2.30 K/uL (1.0-3.4) 06/30/19 14:50 Absolute Monos (auto) 0.80 K/uL (0.2-0.8) 06/30/19 14:50 Absolute Eos (auto) 0.20 K/uL (0.0-0.4) 06/30/19 14:50 Absolute Basos (auto) 0.00 K/uL (0.0-0.1) 06/30/19 14:50 Neutrophils % 46.3 % (42.0-78.0) 06/30/19 14:50 Lymphocytes % 36.2 % (20.0-50.0) 06/30/19 14:50 Monocytes % 13.3 % (2.0-9.0) H 06/30/19 14:50 Eosinophils % 3.5 % (1.0-5.0) 06/30/19 14:50 Basophils % 0.7 % (0.0-2.0) 06/30/19 14:50 Sodium 136 mmol/L (135-145) 06/30/19 14:50 Potassium 4.3 mmol/L (3.6-5.0) 06/30/19 14:50 Chloride 101 mmol/L (101-111) 06/30/19 14:50 Carbon Dioxide 26 mmol/L (21-31) 06/30/19 14:50 Anion Gap 13.3 (12-18) 06/30/19 14:50 BUN 15 mg/dL (7-18) 06/30/19 14:50 Creatinine 0.74 mg/dL (0.6-1.3) 06/30/19 14:50 BUN/Creatinine Ratio 20.3 (10-20) H 06/30/19 14:50 Random Glucose 85 mg/dL (70-105) 06/30/19 14:50 Serum Osmolality 272.0 mOsm/L (275-295) L 06/30/19 14:50 Calcium 10.1 mg/dL (8.4-10.2) 06/30/19 14:50 Urine Color Yellow (Yellow) 06/30/19 14:35 Urine Appearance Clear (Clear) 06/30/19 14:35 Urine pH 6.0 (4.5-7.8) 06/30/19 14:35 Ur Specific Marcella 1.015 (1.005-1.030) 06/30/19 14:35 Urine Protein Negative mg/dL 06/30/19 14:35 Urine Glucose (UA) Negative mg/dL (Negative) 06/30/19 14:35 Urine Ketones Negative mg/dL (NEGATIVE) 06/30/19 14:35 Urine Blood Negative (Negative) 06/30/19 14:35 Urine Nitrite Negative 06/30/19 14:35 Urine Bilirubin Negative (NEGATIVE) 06/30/19 14:35 Urine Urobilinogen 0.2 mg/dL (0.2-1.0) 06/30/19 14:35 Ur Leukocyte Esterase Negative (Negative) 06/30/19 14:35 Urine RBC 0 /hpf 06/30/19 14:35 Urine WBC 0 /hpf 06/30/19 14:35 Ur Epithelial Cells 0 /hpf 06/30/19 14:35 Urine Bacteria 0 06/30/19 14:35 Departure - Departure Clinical Impression: Flank pain, Lumbar pain Time of Disposition: 15:07 Disposition: Discharge to Home or Self Care Condition: Good Departure Forms: ED Discharge - Pt. Copy, Patient Portal Self Enrollment Diet: resume usual diet Activity: increase activity as tolerated, walking as tolerated Referrals: John Hernadez III, MD [Primary Care Provider] - 1-2 Weeks Home Medications: Ambulatory Orders Atorvastatin Calcium [Lipitor] 20 mg PO DAILY 05/29/18 Fluoxetine HCl [Prozac] 60 mg PO DAILY 05/29/18 Testosterone Cypionate 200 mg IM MONTHLY 05/29/18 Sumatriptan Succinate 50 mg PO Q6H PRN 07/02/18 Aripiprazole [Abilify] 2 mg PO DAILY 07/02/19 Aspirin [Aspirin Adult Low Dose] 81 mg PO DAILY 07/02/19 Clonazepam 1 mg PO TID 07/02/19 Gabapentin [Neurontin] 300 mg PO TID 07/02/19 levoFLOXacin [Levaquin] 500 mg PO DAILY 07/02/19 Additional Instructions: Return to ER if symptoms gets worse or any other problem
[2019-06-30 19:34] VITALS: BP 131/83; TEMP 97; O2SAT 96
== END 2019-06-30 16:20 | disposition home or self-care (01) ==
LOC: ER 13:53
DX: R10.9 Unspecified abdominal pain (principal); M54.5 Low back pain; Z88.6 Allergy status to analgesic agent
CPT/HCPCS: 36415; 74176; 80048; 81001; 85025; J1885; J2270; J2405; J7030

== ENCOUNTER 2019-07-05 05:47 | Day surgery (SDC) | payer BC ==
[2019-07-05] MEDS ORDERED: SODIUM CHLORIDE 0.9% 50 ML VIAL ONE (07:00)
[2019-07-05] MEDS ORDERED: LIDOCAINE 1% 10 ML VIAL INJ ONE (07:00)
[2019-07-05] MEDS ORDERED: PROPOFOL 200 MG/20 ML VIAL IV ONE (07:00)
[2019-07-05] MEDS ORDERED: LACTATED RINGERS 1,000 ML ONE (07:04)
[2019-07-05] MEDS ORDERED: MIDAZOLAM INJ 2 MG/2 ML VIAL ONE (10:11)
[2019-07-05] MEDS ORDERED: KETAMINE HCL 100 MG/ML VIAL ONE (10:11)
--- NOTE | 2019-07-05 11:13 | OP ---
DATE OF PROCEDURE: 07/05/19 PREOPERATIVE DIAGNOSIS: 1. Abdominal pain. POSTOPERATIVE DIAGNOSIS: 1. Abdominal pain. PROCEDURE: 1. Colonoscopy with polyp excision times 2. SURGEON: Jarvis Patel MD ANESTHESIA: General. FINDINGS: There is no evidence of inflammation in the colon. The terminal ileum and appendiceal orifice were identified. There was a good prep. Small polyps were removed at both 25 and 15 cm. COMPLICATIONS: None. ESTIMATED BLOOD LOSS: None. CONDITION: Stable. PLAN: Discharge. INDICATION: This is a man with a history of abdominal pain an issues more recently and more severe left sided abdominal pain. He is on antipsychotic medications. He denies significant constipation, but he is evaluated and consented for screening colonoscopy. PROCEDURE: He was brought to the Operating Suite in supine position. In lateral position, anesthesia was induced. Digital rectal exam was normal. The scope was inserted and advanced to the cecum. There was an adequate prep. Upon withdrawal, there was no evidence of acute inflammation. The ascending, transverse and descending colon and sigmoid appeared normal with no significant diverticulosis. At 25 cm, a small polyp was removed. It approximately 4 mm and an additional at 15 cm was just about 2 mm. The two in this area appeared hyperplastic that were taken together. The patient tolerated the procedure and was awakened and taken to Recovery to be discharged. #[id number] [facility]
[2019-07-05 11:57] VITALS: BP 105/75; TEMP 97.1; O2SAT 99
== END 2019-07-05 11:45 | disposition home or self-care (01) ==
LOC: AMB 05:47
PROVIDERS: ATTEND Surgery
DX: R10.9 Unspecified abdominal pain (principal); K63.5 Polyp of colon; Z88.6 Allergy status to analgesic agent
CPT/HCPCS: 00811; 45380; A4216; J2250; J3490; J7120

== ENCOUNTER 2019-08-25 17:40 | Emergency (ER) | payer BC ==
--- NOTE | 2019-08-25 18:28 | ED.PDOC ---
History of Present Illness - General Chief Complaint: Problem Time Seen by Provider: 08/25/19 18:27 Source: patient Exam Limitations: no limitations - History of Present Illness Initial Comments: 34 yo M who presents for L testicular pain onset 4pm, states it is like someone squeezing his testicle, 10/22, no radiation, constant. Denies f/c, flank pain, dysuria, hematuria, abd pain, n/v/d, decreased urination, penile swelling, penile discharge, testicular swelling, trauma. No hx of abd surgeries, kidney stones. Allergies/Adverse Reactions: Allergies Ibuprofen [From Advil] Adverse Reaction (Verified 07/13/19 20:23) Other Eyes swell Naproxen [From Aleve] Adverse Reaction (Verified 07/13/19 20:23) Other Eyes swell Home Medications: Ambulatory Orders Atorvastatin Calcium [Lipitor] 20 mg PO DAILY 05/29/18 Testosterone Cypionate 200 mg IM WKLY 05/29/18 Clonazepam 1 mg PO TID 07/02/19 Gabapentin [Neurontin] 300 mg PO TID 07/02/19 Review of Systems - Review of Systems Constitutional: Denies: chills, fever EENTM: States: no symptoms reported Respiratory: States: no symptoms reported Cardiology: Denies: chest pain, palpitations Gastrointestinal/Abdominal: Denies: abdominal pain, constipation, diarrhea, nausea, vomiting Genitourinary: States: other - L testicular pain. Denies: discharge, dysuria, frequency, hematuria Musculoskeletal: Denies: back pain, neck pain Skin: Denies: lesions, rash Neurological: Denies: headache, numbness, weakness Past Medical History (General) - Patient Medical History Hx Seizures: No Hx Stroke: No Hx Dementia: No Hx Asthma: No Hx of COPD: No Hx Cardiac Disorders: No Hx Congestive Heart Failure: No Hx Pacemaker: No Hx Hypertension: No Hx Thyroid Disease: No Hx Diabetes: No Hx Gastroesophageal Reflux: No Hx Renal Disease: No Hx Cancer: No Hx of HIV: No Hx Hepatitis C: No Hx MRSA: No Surgical History: no surgical history - Vaccination History Hx Tetanus, Diphtheria Vaccination: Yes - 2019 Hx Influenza Vaccination: No Hx Pneumococcal Vaccination: No - Social History Hx Tobacco Use: No Hx Chewing Tobacco Use: No Hx Alcohol Use: Yes - social Hx Substance Use: No Hx Substance Use Treatment: No Hx Depression: No Hx Physical Abuse: No Hx Emotional Abuse: No Hx Suspected Abuse: No Family Medical History - Family History Mother Family History: No Known Living Status: Still Living Hx Cardiac Disease: Yes - dad Father Family History: No Known Living Status: Still Living Physical Exam - Physical Exam General Appearance: Alert, Comfortable, No apparent distress, Well Developed, Well Nourished, Other - Resting comfortably in bed Eyes, Ears, Nose, Throat Exam: normal ENT inspection Neck: full range of motion Cardiovascular/Respiratory: regular rate, rhythm, no M/R/G, normal peripheral pulses, no JVD, normal breath sounds, no respiratory distress Gastrointestinal/Abdominal: normal bowel sounds, non tender, soft, no organomegaly, no pulsatile mass Male Genital Exam: normal genitalia, no hernia, other - No testicular swelling, TTP, hard testicle, high riding testicle, erythema. No penile discharge, swelling, erythema, lesions. Cremasteric reflex present bilaterally. Back Exam: normal inspection, no CVA tenderness, no vertebral tenderness Extremity: normal range of motion, non-tender, normal inspection, no pedal cee ma, no calf tenderness Neurologic: no motor/sensory deficits, alert, normal mood/affect Skin Exam: normal color, warm/dry Lymphatic: no adenopathy Progress - Progress Progress: 08/25/19 19:02 Discussed with US tech, unable to come in for US study. Discussed with radiologist, only other option for study is a nuclear medicine study, which we also do not have available to us. Chart reviewed, pt is very well known to system. Has asked multiple times for pain medication, will give tylenol and reassess. Exam is benign, very low suspicion for surgical pathology. TWIST score is zero. Attempting to communicate with nearby ER departments to see availability of US. 08/25/19 19:44 [facility] accepted pt without a doc to doc. Pt declined ambulance transfer, will go by private vehicle with , feels safe in doing so. Verbalizes the importance of going straight there. He states he will go straight there after leaving here. Urine culture sent, audit nurses will follow, he declines antibx at this time, will wait for culture. All questions and concerns addressed. States tylenol did not help his pain, asking for more pain medication, will give dose of Ultram. 08/25/19 20:10 Pt now at bedside, discussed at length findings and need for US, states she is going to take the pt straight to [facility]. She verbalizes understanding as to the importance of this. All questions and concerns addressed. Pt appears comfortable, resting in bed. Crystal Mcneil MD Emergency Medicine Physician Billing Number [id number] - Results/Orders Results/Orders: 08/25/19 19:43 Urine Culture Stat 08/25/19 19:46 traMADol HCL [Ultram] 50 mg PO ONCE ONE Laboratory Results - last 24 hr 08/25/19 18:45 Urine Color Yellow Urine Appearance Cloudy Urine pH 8.5 H Ur Specific [place] 1.020 Urine Protein 30 Urine Glucose (UA) Negative Urine Ketones Negative Urine Blood Negative Urine Nitrite Negative Urine Bilirubin Negative Urine Urobilinogen 0.2 Ur Leukocyte Esterase Negative Urine RBC 0 Urine WBC 0 Ur Epithelial Cells 0 Amorphous Sediment 3+ Urine Bacteria Rare Vital Signs - 24 hr 08/25/19 17:50 Temperature 98.4 F Pulse Rate [ 52 L Left Arm] Respiratory 18 Rate Blood Pressure 100/74 [Left Arm] O2 Sat by Pulse 96 Oximetry Departure - Departure Clinical Impression: Testicular pain, left Time of Disposition: 20:10 Disposition: Transfer to Hospital Health Concerns: condition:stable Departure Forms: ED Discharge - Pt. Copy, Patient Portal Self Enrollment Referrals: John Hernadez III, MD [Primary Care Provider] - 1-2 Days Home Medications: Ambulatory Orders Atorvastatin Calcium [Lipitor] 20 mg PO DAILY 05/29/18 Testosterone Cypionate 200 mg IM WKLY 05/29/18 Clonazepam 1 mg PO TID 07/02/19 Gabapentin [Neurontin] 300 mg PO TID 07/02/19 Additional Instructions: Go to [facility]
[2019-08-25] MEDS ORDERED: ACETAMINOPHEN 500 MG TAB PO ONE (18:57)
[2019-08-25] MEDS ORDERED: traMADol HCL 50 MG TAB PO ONE (19:46)
[2019-08-25 19:53] VITALS: BP 114/65; TEMP 99; O2SAT 95
== END 2019-08-25 20:08 | disposition short-term general hospital (02) ==
LOC: ER 17:40
DX: N50.812 Left testicular pain (principal)

== ENCOUNTER → 2019-09-26 | Outpatient (CLI) | payer BC ==
--- NOTE | 2019-09-26 22:14 | MRI ---
EXAM DESCRIPTION: Cervical Spine: MRI. CLINICAL HISTORY: 34 years Male CERVICAL DISC DISORDER AT C5-C6 LEVEL WITH RADICULOPATHY COMPARISON: MRI scan cervical spine August 2018. MRI scan thoracic spine on this visit. TECHNIQUE: Multiplanar, high-field MRI, multiple sequences, non-contrast Cervical spine. FINDINGS: C3-C4: Posterior midline protrusion 4.5 mm impressing on the ventral cord with hyperintense T2 annular fissure in the protruded segment. 6.5 mm width of the herniated disc, which has enlarged posteriorly and transverse since the previous study. AP canal diameter 7.5 mm. Right uncinate spur with mild neural foraminal narrowing, stable since the prior study. Left neural foramen is patent. Facet joints negative. C4-C5: Minimal desiccation of the disc with disc space preserved. Tiny posterior midline bulge. Facet joints negative. Canal and neural foramina are patent. C5-C6: Disc desiccation with minimal anterior bulge and anterior endplate ridging. Tiny posterior bulge. Negative facet joints. Canal and neural foramina are patent. C6-C7: Disc desiccation with disc space preserved. No bulging. Facet joints are negative. Canal and neural foramina are patent. Normal signal in the remaining discs with no bulging. Disc spaces preserved. Canal and neural foramina are patent. Facet joints unremarkable. Spinal alignment C2-C4 kyphosis. No cord compression or cord edema. Atlantoaxial joint negative. Base of the cerebellar tonsils is at the level of the foramen magnum. Paravertebral soft tissues unremarkable with no enlarged lymph nodes.. Vertebral bodies are not compressed at any level. Otherwise normal marrow signal in the remaining vertebral bodies and the posterior elements. IMPRESSION: 1. C3-C4 posterior midline disc protrusion with annular fissure measuring 4.5 x 6.5 mm, enlarging since the prior study with more mass effect on the cord. Mild central canal stenosis. Right uncinate spur and right neural foraminal narrowing is stable. 2. Other discs as described with minimal desiccation and minimal bulging but no nerve impingement or canal or neural foraminal stenosis Electronically signed by: Adrian Childress MD 09/26/2019 10:12 PM CDT
--- NOTE | 2019-09-26 22:23 | MRI ---
EXAM DESCRIPTION: Thoracic Spine w/o Contrast: Magnetic Resonance Imaging. CLINICAL HISTORY: CHEST PAIN. Weakness and pain in the left arm and hand. COMPARISON: MRI scan cervical spine without contrast on this visit. Chest radiograph July 16. TECHNIQUE: Multiplanar, multiple standard sequences, non contrast MRI, thoracic spine. FINDINGS: Normal signal in the T4-T5 disc and normal disc space with with tiny posterior bulge abutting the cord. Canal and foramina are patent and facets are unremarkable. Decreased disc space at T8-T9 with decreased T2 weighted signal in the disc but no bulging. Canal and foramina are patent and facets are negative. T9-T10 disc space decreased with increased T2 weighted signal in the disc but no bulging. Small Schmorl's nodes in the endplates. Canal and foramina are patent and facet joints are unremarkable. T10-T11 disc and disc space similar with small Schmorl's node in the inferior T10 endplate. No canal or foraminal stenosis. Any discs with normal signal. Disc spaces are preserved. Canal and foramina are patent. Facet joints are unremarkable. Conus termination below level of the T12 vertebral body. Cord with normal signal, no compression. No scoliosis. Paravertebral soft tissues are unremarkable. Normal marrow signal in the remaining vertebral bodies and the posterior elements. Vertebral bodies are not compressed at any level. IMPRESSION: Multiple levels of disc desiccation and disc space loss as described. Tiny posterior bulge T4-T5 disc with no significant canal or foraminal narrowing. Early spondylosis with endplate changes at T10-T11 and T9-T10. No canal or foraminal stenosis at any level. No compression type vertebral body fracture. Electronically signed by: Adrian Childress MD 09/26/2019 10:22 PM CDT
== END ==
LOC: MRI 12:43
PROVIDERS: ATTEND Family Medicine
DX: M50.122 Cervical disc disorder at C5-C6 level with radiculopathy (principal); M50.21 Other cervical disc displacement, high cervical region; M48.02 Spinal stenosis, cervical region; M25.78 Osteophyte, vertebrae; M47.894 Other spondylosis, thoracic region; M51.84 Other intervertebral disc disorders, thoracic region; M51.34 Other intervertebral disc degeneration, thoracic region; R07.89 Other chest pain

== ENCOUNTER 2019-10-14 20:14 | Emergency (ER) | payer BC ==
--- NOTE | 2019-10-14 21:02 | RAD ---
EXAM DESCRIPTION: XR CHEST, 1 VIEW CLINICAL HISTORY: SOB, recent tx for pneumonia TECHNIQUE: Single frontal view of the chest is submitted. COMPARISON: 07/02/2018 FINDINGS: Heart: The cardiothoracic silhouette is within normal limits. Lungs: Minimal hazy bibasilar opacities. Mediastinum: Unremarkable Pleura: No appreciable effusion. No pneumothorax. Bones: Intact Upper abdomen: Unremarkable IMPRESSION: Minimal hazy bibasilar opacities (atelectasis and/or infiltrate). Electronically signed by: Renetta Tao MD 10/14/2019 9:00 PM CDT
[2019-10-14] MEDS ORDERED: SODIUM CHLORIDE 0.9% 1000ML 1,000 ML IVS ONE (22:34)
[2019-10-14] MEDS ORDERED: KETOROLAC TROMETHAMINE INJ 30 MG/ML VIAL IV ONE (22:34)
--- NOTE | 2019-10-14 22:39 | ED.PDOC ---
History of Present Illness - General Chief Complaint: Respiratory Problem Stated Complaint: SOB, recent double pneumonia dx Time Seen by Provider: 10/14/19 20:42 Source: patient - History of Present Illness Initial Comments: 34 yo male with PMH of anxiety, depression who presents with CC of cough and fever. Reports onset of illness approximately 13 days ago. States that he was running daily fevers with T-max 104 F every day until about 3 days ago but is continued to have night sweats and fevers just at night for the past 2 to 3 days. Reports also frequent cough productive for thick white sputum and moderate dyspnea which is worse with exertion. Patient was tested 10 days ago for COVID and strep which was negative at that time. He was again seen in the clinic 6 days ago and had a chest x-ray and diagnosed with pneumonia. He was on azithromycin and cefdinir for 3 days, but worsened on this regimen so he was changed to Levaquin which he has been on for the past 3 days. Again reports mau t the daytime fevers have resolved but still having nighttime fevers, dyspnea, productive cough. Additionally reports mild sore throat, knee aches, body aches. Denies any recent known sick contacts. Denies chest pain, abdominal pain, nausea/vomiting. He does report also 4-5 episodes of watery diarrhea each day since onset of illness. PCP is Dr. Hernadez. Patient has a scheduled follow-up visit tomorrow. Allergies/Adverse Reactions: Allergies Ibuprofen [From Advil] Adverse Reaction (Verified 10/14/19 20:32) Other Eyes swell Naproxen [From Aleve] Adverse Reaction (Verified 10/14/19 20:32) Other Eyes swell Home Medications: Ambulatory Orders Atorvastatin Calcium [Lipitor] 20 mg PO DAILY 05/29/18 Testosterone Cypionate 200 mg IM WKLY 05/29/18 Clonazepam 1 mg PO TID 07/02/19 Gabapentin [Neurontin] 300 mg PO TID 07/02/19 Review of Systems - Review of Systems Review of Systems: 10/14/19 22:39 as per HPI All other Systems: Reviewed and Negative Past Medical History (General) - Patient Medical History Hx Seizures: No Hx Stroke: No Hx Dementia: No Hx Asthma: No Hx of COPD: No Hx Cardiac Disorders: No Hx Congestive Heart Failure: No Hx Pacemaker: No Hx Hypertension: No Hx Thyroid Disease: No Hx Diabetes: No Hx Gastroesophageal Reflux: No Hx Renal Disease: No Hx Cancer: No Hx of HIV: No Hx Hepatitis C: No Hx MRSA: No Surgical History: no surgical history - Vaccination History Hx Tetanus, Diphtheria Vaccination: Yes - 2019 Hx Influenza Vaccination: No Hx Pneumococcal Vaccination: No - Social History Hx Tobacco Use: No Hx Chewing Tobacco Use: No Hx Alcohol Use: Yes - social Hx Substance Use: No Hx Substance Use Treatment: No Hx Depression: No Hx Physical Abuse: No Hx Emotional Abuse: No Hx Suspected Abuse: No Family Medical History - Family History Mother Family History: No Known Living Status: Still Living Hx Cardiac Disease: Yes - dad Father Family History: No Known Living Status: Still Living Physical Exam - Physical Exam General Appearance: Alert, Comfortable, No apparent distress Eye Exam: bilateral normal Ears, Nose, Throat: hearing grossly normal, normal ENT inspection, normal phar ynx Neck: non-tender, full range of motion, supple, normal inspection Respiratory: chest non-tender, lungs clear, normal breath sounds, no respiratory distress, no accessory muscle use Cardiovascular/Chest: normal peripheral pulses, regular rate, rhythm, no edema, no gallop, no JVD, no murmur Peripheral Pulses: radial,right: 2+, radial,left: 2+ Gastrointestinal/Abdominal: non tender, soft, no organomegaly Back Exam: normal inspection, no CVA tenderness, no vertebral tenderness Extremity: normal range of motion, non-tender, normal inspection, no pedal edema, no calf tenderness, normal capillary refill 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 Consider also ?asthma, flu, strep, COVID, gastroenteritis, colitis, lymphoma, other -Patient stable, NAD, vitals WNL, lung exam normal -Obtain blood work, chest x-ray, flu, COVID 10/14/19 22:50 -Patient has remained stable, vitals remain WNL, afebrile. Repeat exam is unchanged. -Lab work is largely unremarkable, WBC is 6000 without left shift or bandemia, lactate 0.9. PLT count elevated to 798,000, suspect from acute infection. -Flu test is negative, COVID test sent and is pending. Advised patient to self quarantine until COVID results are known. -Discussed the patient with Dr. Hernadez. We both feel that the patient is actual ly improving on the Levaquin over the past 3 days with improving fevers and Dr. Hernadez states that his white blood cell count continues to improve from 12,000 last week. Patient has scheduled follow-up tomorrow morning with Dr. Hernadez in the clinic for repeat evaluation. His pain is well controlled in the ED with Toradol and Tylenol #3 x1. -I am unable to see his previous chest x-ray but I feel that the opacities noted by radiology are very subtle and could be lagging behind patient clinical improvement. Thus continue the Levaquin for now until further direction from the PCP. -DC to home in fair condition, return warnings discussed at length. Gilberto Evans MD Billing #[id number] 10/14/19 19:45 BLOOD CULTURE Stat 10/14/19 22:43 SARS-COV2 RT-PCR HIGH RISK Stat Laboratory Results - last 24 hr 10/14/19 10/14/19 10/14/19 19:45 19:45 19:45 WBC 6.0 RBC 4.59 L Hgb 13.8 L Hct 40.2 L MCV 87.7 MCH 30.1 MCHC 34.4 RDW 13.1 Plt Count 798 H MPV 7.2 L Absolute Neuts (auto) 3.50 Absolute Lymphs (auto) 1.50 Absolute Monos (auto) 0.50 Absolute Eos (auto) 0.40 Absolute Basos (auto) 0.00 Neutrophils % 59.1 Lymphocytes % 25.7 Monocytes % 8.3 Eosinophils % 6.3 H Basophils % 0.6 Sodium 134 L Potassium 4.0 Chloride 98 L Carbon Dioxide 27 Anion Gap 13.0 BUN 15 Creatinine 0.86 BUN/Creatinine Ratio 17.4 Random Glucose 100 Serum Osmolality 269.2 L Lactic Acid 0.9 Calcium 9.1 Total Bilirubin 0.7 AST 45 H ALT 40 Alkaline Phosphatase 101 Serum Total Protein 8.5 H Albumin 3.1 L Globulin 5.4 H Albumin/Globulin Ratio 0.6 L - EKG/XRAY/CT EKG: Sinus - NSR, HR 90, no ST elevations or Q waves noted, axis normal, intervals normal, compared to 07/13/2019 EKG appears largely unchanged. XRAY: chest - Faint bilateral lower lobe subtle hazy opacities concerning for possible infectious versus inflammatory process per my read Departure - Departure Clinical Impression: Pneumonia Qualifiers: Pneumonia type: due to unspecified organism Laterality: bilateral Lung loca tion: lower lobe of lung Qualified Code(s): J18.9 - Pneumonia, unspecified organism Time of Disposition: 23:11 Disposition: Discharge to Home or Self Care Condition: Fair Departure Forms: ED Discharge - Pt. Copy, Patient Portal Self Enrollment Instructions: DI for Pneumonia -- Adult Diet: resume usual diet Activity: increase activity as tolerated Referrals: John Hernadez III, MD [Primary Care Provider] - 1-2 Weeks Home Medications: Ambulatory Orders Atorvastatin Calcium [Lipitor] 20 mg PO DAILY 05/29/18 Testosterone Cypionate 200 mg IM WKLY 05/29/18 Clonazepam 1 mg PO TID 07/02/19 Gabapentin [Neurontin] 300 mg PO TID 07/02/19 Additional Instructions: Continue taking the Levaquin as directed. Continue self quarantine until COVID test results are back. Return to the ED if your symptoms worsen or other concerning symptoms develop such as worsening shortness of breath, chest pain, etc. Follow-up with Dr. Hernadez tomorrow as scheduled. You may continue to take OTC ibuprofen and Tylenol as needed for pain control.
[2019-10-14 23:16] VITALS: O2SAT 95
[2019-10-14] MEDS ORDERED: ACETAMINOPHEN W/COD #3 TAB 1 EA TAB PO ONE (23:32)
[2019-10-14 23:45] VITALS: BP 107/74; TEMP 97.6
== END 2019-10-14 23:45 | disposition home or self-care (01) ==
LOC: ER 20:14
DX: J18.9 Pneumonia, unspecified organism (principal); R19.7 Diarrhea, unspecified
CPT/HCPCS: 36415; 71045; 80053; 83605; 85025; 87040; 87502; 87635; 93005; J1885; J7030

== ENCOUNTER → 2019-11-12 | Outpatient (CLI) | payer BC | LOC: GMAL 10:30 | PROVIDERS: ATTEND Family Medicine | DX: E29.8 Other testicular dysfunction (principal) ==

== ENCOUNTER → 2019-12-03 | Outpatient (CLI) | payer BC | LOC: GMAL 10:22 | PROVIDERS: ATTEND Family Medicine | DX: Z00.01 Encounter for general adult medical examination with abnormal findings (principal); E53.8 Deficiency of other specified B group vitamins; E55.9 Vitamin D deficiency, unspecified ==

== ENCOUNTER 2019-12-29 00:19 | Emergency (ER) | payer BC ==
--- NOTE | 2019-12-29 00:35 | ED.PDOC ---
History of Present Illness - General Time Seen by Provider: 12/29/19 00:33 - History of Present Illness Initial Comments: 34 yo male with chronic neck pain from bulging disc comes in due to worsening pain. states he gets norco 10/325 TID, gets 2 weeks script at a time. IS due f or refill on Monday, ran out this Monday. denies any new injury. pain is sharp, radiates down both trapezius and towards his right pectoral muscle. no weakness. Allergies/Adverse Reactions: Allergies Ibuprofen [From Advil] Adverse Reaction (Verified 10/14/19 20:32) Other Eyes swell Naproxen [From Aleve] Adverse Reaction (Verified 10/14/19 20:32) Other Eyes swell Home Medications: Ambulatory Orders Atorvastatin Calcium [Lipitor] 20 mg PO DAILY 05/29/18 Testosterone Cypionate 200 mg IM WKLY 05/29/18 Clonazepam 1 mg PO TID 07/02/19 Gabapentin [Neurontin] 300 mg PO TID 07/02/19 Review of Systems - Review of Systems Constitutional: Denies: diaphoresis, fever, malaise, weakness EENTM: Denies: double vision, ear pain, ear discharge, nose pain, nose congestion, throat pain, mouth swelling Respiratory: Denies: cough, orthopnea, short of breath, stridor Cardiology: Denies: chest pain, edema, palpitations, syncope Gastrointestinal/Abdominal: Denies: abdominal pain, constipation, diarrhea, nausea, vomiting Genitourinary: Denies: discharge, dysuria, frequency, hematuria, pain Musculoskeletal: States: joint pain, muscle pain, neck pain. Denies: back pain, joint swelling, muscle stiffness Skin: Denies: change in color, rash Neurological: States: numbness. Denies: headache, paresthesia, pre-existing deficit, seizure, tingling, tremors, weakness Endocrine: States: no symptoms reported. Denies: unexplained weight gain, unexplained weight loss Hematologic/Lymphatic: Denies: anemia, blood clots, easy bleeding, easy bruising Past Medical History (General) - Patient Medical History Hx Seizures: No Hx Stroke: No Hx Dementia: No Hx Asthma: No Hx of COPD: No Hx Cardiac Disorders: No Hx Congestive Heart Failure: No Hx Pacemaker: No Hx Hypertension: No Hx Thyroid Disease: No Hx Diabetes: No Hx Gastroesophageal Reflux: No Hx Renal Disease: No Hx Cancer: No Hx of HIV: No Hx Hepatitis C: No Hx MRSA: No - Vaccination History Hx Tetanus, Diphtheria Vaccination: Yes - 2019 Hx Influenza Vaccination: No Hx Pneumococcal Vaccination: No - Social History Hx Tobacco Use: No Hx Chewing Tobacco Use: No Hx Alcohol Use: Yes - social Hx Substance Use: No Hx Substance Use Treatment: No Hx Depression: No Hx Physical Abuse: No Hx Emotional Abuse: No Hx Suspected Abuse: No Family Medical History - Family History Mother Family History: No Known Living Status: Still Living Hx Cardiac Disease: Yes - dad Father Family History: No Known Living Status: Still Living Physical Exam - Physical Exam General Appearance: Alert, Comfortable, No apparent distress Eye Exam: bilateral normal Ears, Nose, Throat: hearing grossly normal, normal ENT inspection, normal pharynx Neck: non-tender, full range of motion, supple, normal inspection Respiratory: chest non-tender, lungs clear, normal breath sounds, no respiratory distress, no accessory muscle use Cardiovascular/Chest: normal peripheral pulses, regular rate, rhythm, no edema, no gallop, no JVD, no murmur Peripheral Pulses: radial,right: 2+, radial,left: 2+, dorsalis pedis,right: 2+, dorsalis pedis,left: 2+ Gastrointestinal/Abdominal: normal bowel sounds, non tender, soft, no organomegaly, no pulsatile mass Rectal Exam: deferred Back Exam: normal inspection, no CVA tenderness, no vertebral tenderness Extremity: normal range of motion, non-tender, normal inspection, no pedal edema, no calf tenderness, other - full ROM, 5/5 upper extremity strength, pulses intact, tony symmetric. sensation grossly intact. no cervical midline tenderness, no step offs. Normal rom of neck. 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 Will get CXR, EKG and CT neck. EKG shows HR 88, NSR, normal ekg. CXR shows no acute cardiopulmonary pathology, ct neck so no acute pathology. The data reviewed when caring for this patient included: nurse notes, prior records, etc. The history and assessments from nurses notes were reviewed and considered, and the patient's home medication list was also reviewed and considered. My assessment and the results of testing completed here in the ED were discussed with the patient/family. All questions were answered, and they express understanding of my assessment and the plan. They have been instructed to return if their symptoms worsen, and have been asked to follow up with their primary care physician to recheck today's presenting complaint. I have reviewed medication, benefits, alternative and side effects. Patient decided to proceed with medication.Patient given 3 norco for home. pdmp checked. Patient discharged in stable condition. Departure - Departure Clinical Impression: Neck pain of over 3 months duration Time of Disposition: 01:38 Disposition: Discharge to Home or Self Care Condition: Good Instructions: Chronic Neck Pain (DC) Referrals: John Hernadez III, MD [Primary Care Provider] - 1-2 Days Home Medications: Ambulatory Orders Atorvastatin Calcium [Lipitor] 20 mg PO DAILY 05/29/18 Testosterone Cypionate 200 mg IM WKLY 05/29/18 Clonazepam 1 mg PO TID 07/02/19 Gabapentin [Neurontin] 300 mg PO TID 07/02/19
[2019-12-29] MEDS ORDERED: MORPHINE SULFATE INJ 10 MG/ML VIAL IM ONE (00:45)
[2019-12-29] MEDS ORDERED: ONDANSETRON ODT 8 MG TAB SL ONE (00:46)
[2019-12-29 00:58] VITALS: BP 115/76; TEMP 97.6; O2SAT 96
--- NOTE | 2019-12-29 01:28 | RAD ---
EXAM DESCRIPTION: Chest,2 Views CLINICAL HISTORY: 34 years Male, adjustment COMPARISON: None TECHNIQUE: Single AP chest radiograph. FINDINGS: Clear lungs. No pneumothorax or pleural effusion. Normal cardiomediastinal contour. Normal osseous structures. IMPRESSION: 1. No acute cardiopulmonary process. Electronically signed by: Chi Borges MD 12/29/2019 1:27 AM CDT
--- NOTE | 2019-12-29 01:29 | CT ---
EXAM DESCRIPTION: Cervical Spine CLINICAL HISTORY: neck pain COMPARISON: 09/26/2019 TECHNIQUE: Contiguous axial images of the cervical spine were obtained without the administration of intravenous contrast followed by reconstruction images. This exam was performed according to our departmental dose-optimization program, which includes automated exposure control, adjustment of the mA and/or kV according to patient size and/or use of iterative reconstruction technique. FINDINGS: Anatomic alignment. Vertebral body heights are maintained. No spondylolisthesis, fracture or destructive osseous lesion. Endplates are well-visualized and the posterior elements are intact. The atlantoaxial relationship is preserved. Multilevel spondylosis. Prevertebral and paraspinous soft tissues are normal. No apical pneumothorax. IMPRESSION: 1. No acute fracture or traumatic malalignment. Electronically signed by: Chi Borges MD 12/29/2019 1:27 AM CDT
[2019-12-29] MEDS ORDERED: HYDROCOD/APAP 10/325 (ER DISP) # 3 tablets PO ONE (01:35)
== END 2019-12-29 02:00 | disposition home or self-care (01) ==
LOC: ER 00:19
DX: M54.2 Cervicalgia (principal); G89.29 Other chronic pain; R20.0 Anesthesia of skin; Z79.899 Other long term (current) drug therapy; Z88.6 Allergy status to analgesic agent
CPT/HCPCS: 71046; 72125; 93005; J2270

== ENCOUNTER 2020-01-05 19:52 | Emergency (ER) | payer BC ==
[2020-01-05] MEDS ORDERED: traMADol HCL 50 MG TAB PO ONE (20:09)
--- NOTE | 2020-01-05 20:13 | ED.PDOC ---
History of Present Illness - General Chief Complaint: Back Pain or Injury Stated Complaint: new onset pain to right arm Time Seen by Provider: 01/05/20 20:08 - History of Present Illness Initial Comments: 34 yo RHD M presents with chronic neck pain. Complains of worsening pain. Pain right sided, radiates to his upper neck. Follows Dr. Hernadez, gets norco 10 2 weeks at a time. Was here one week ago for similar thing. Had a ct at that time. denies new injury. no numbness or tingling. Allergies/Adverse Reactions: Allergies Ibuprofen [From Advil] Adverse Reaction (Verified 10/14/19 20:32) Other Eyes swell Naproxen [From Aleve] Adverse Reaction (Verified 10/14/19 20:32) Other Eyes swell Home Medications: Ambulatory Orders Atorvastatin Calcium [Lipitor] 20 mg PO DAILY 05/29/18 Testosterone Cypionate 200 mg IM WKLY 05/29/18 Clonazepam 1 mg PO TID 07/02/19 Gabapentin [Neurontin] 300 mg PO TID 07/02/19 Magnesium 400 mg PO DAILY PRN #30 tab 01/05/20 Review of Systems - Review of Systems Constitutional: Denies: diaphoresis, fever, malaise EENTM: Denies: ear discharge, nose congestion Respiratory: Denies: cough, orthopnea, short of breath, stridor Cardiology: Denies: chest pain, edema, palpitations, syncope Gastrointestinal/Abdominal: States: no symptoms reported. Denies: abdominal pain, diarrhea, nausea Genitourinary: Denies: discharge, dysuria, frequency, hematuria Musculoskeletal: States: muscle pain, neck pain. Denies: back pain, joint pain, joint swelling, muscle stiffness Skin: Denies: change in color, change in hair/nails, rash Neurological: Denies: headache, numbness, paresthesia, seizure, tingling, tremors, weakness Endocrine: Denies: unexplained weight gain, unexplained weight loss Hematologic/Lymphatic: Denies: anemia, blood clots, easy bleeding, easy bruising Past Medical History (General) - Patient Medical History Hx Seizures: No Hx Stroke: No Hx Dementia: No Hx Asthma: No Hx of COPD: No Hx Cardiac Disorders: No Hx Congestive Heart Failure: No Hx Pacemaker: No Hx Hypertension: No Hx Thyroid Disease: No Hx Diabetes: No Hx Gastroesophageal Reflux: No Hx Renal Disease: No Hx Cancer: No Hx of HIV: No Hx Hepatitis C: No Hx MRSA: No - Vaccination History Hx Tetanus, Diphtheria Vaccination: Yes - 2019 Hx Influenza Vaccination: No Hx Pneumococcal Vaccination: No - Social History Hx Tobacco Use: No Hx Chewing Tobacco Use: No Hx Alcohol Use: Yes - social Hx Substance Use: No Hx Substance Use Treatment: No Hx Depression: No Hx Physical Abuse: No Hx Emotional Abuse: No Hx Suspected Abuse: No Family Medical History - Family History Mother Family History: No Known Living Status: Still Living Hx Cardiac Disease: Yes - dad Father Family History: No Known Living Status: Still Living Physical Exam - Physical Exam General Appearance: Alert, Comfortable, No apparent distress, Well Developed, Well Groomed, Well Hydrated, Well Nourished Eyes, Ears, Nose, Throat Exam: PERRL/EOMI, normal ENT inspection Neck Exam: non-tender, full range of motion, normal alignment, normal inspection Cardiovascular/Respiratory: regular rate, rhythm, no M/R/G, normal peripheral pulses, no JVD, normal breath sounds, no respiratory distress Peripheral Pulses: radial,right: 2+, radial,left: 2+ Gastrointestinal/Abdominal: normal bowel sounds, non tender, soft, no organomegaly, no pulsatile mass Back Exam: normal inspection, no CVA tenderness, no vertebral tenderness Extremity Exam: no evidence of injury, normal range of motion, non-tender, no pedal edema 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 I do not feel a repeat ct is needed at this time. CT scan from last week showed: Anatomic alignment. Vertebral body heights are maintained. No spondylolisthesis, fracture or destructive osseous lesion. Endplates are well-visualized and the posterior elements are intact. The atlantoaxial relationship is preserved. Multilevel spondylosis. Prevertebral and paraspinous soft tissues are normal. No apical pneumothorax. IMPRESSION: 1. No acute fracture or traumatic malalignment. Patient is scheduled to see specialist next month. I recommend magnesium and tyelnol, warm baths for pain. The data reviewed when caring for this patient included: nurse notes, prior records, etc. The history and assessments from nurses notes were reviewed and considered, and the patient's home medication list was also reviewed and considered. My assessment and the results of testing completed here in the ED were discussed with the patient. All questions were answered, and they express understanding of my assessment and the plan. They have been instructed to follow up with their primary care physician to recheck today's presenting complaint. return precautions provided. I have reviewed medication, benefits, alternatives and side effects. Patient decided to proceed with medication. patient was discharged home in stable condition. Mikala Hurd DO #[id number] 01/05/20 20:32 Departure - Departure Clinical Impression: Neck pain on right side Time of Disposition: 20:17 Disposition: Discharge to Home or Self Care Departure Forms: ED Discharge - Pt. Copy, Patient Portal Self Enrollment Instructions: DI for Low Back Pain, Chronic Neck Pain (DC) Referrals: John Hernadez III, MD [Primary Care Provider] - 1-5 Days Prescriptions: Magnesium 400 mg PO DAILY PRN #30 tab PRN Reason: muscle pain Home Medications: Ambulatory Orders Atorvastatin Calcium [Lipitor] 20 mg PO DAILY 05/29/18 Testosterone Cypionate 200 mg IM WKLY 05/29/18 Clonazepam 1 mg PO TID 07/02/19 Gabapentin [Neurontin] 300 mg PO TID 07/02/19 Magnesium 400 mg PO DAILY PRN #30 tab 01/05/20
[2020-01-05] MEDS ORDERED: MAGNESIUM OXIDE 400 MG TAB PO ONE (20:23)
[2020-01-05] MEDS ORDERED: CYCLOBENZAPRINE TAB (ER DISP) 10 MG TAB PO ONE (20:26)
[2020-01-05 20:31] VITALS: TEMP 97.3
[2020-01-05 20:48] VITALS: BP 121/74; O2SAT 97
== END 2020-01-05 20:48 | disposition home or self-care (01) ==
LOC: ER 19:52
DX: M79.601 Pain in right arm (principal); M54.2 Cervicalgia; G89.29 Other chronic pain; Z79.899 Other long term (current) drug therapy; Z88.6 Allergy status to analgesic agent

== ENCOUNTER 2020-01-07 11:10 | Emergency (ER) | payer BC ==
--- NOTE | 2020-01-07 11:26 | ED.PDOC ---
History of Present Illness - General Chief Complaint: GI Problem Time Seen by Provider: 01/07/20 11:24 Source: patient - History of Present Illness Initial Comments: 34-year-old male who presents with chief complaint of abdominal pain and diarrhea. Reports onset of illness this morning around 4 AM. Reports crampy abdominal pain in the midline which radiates throughout the abdomen, constant, 8/10 severity, worse with attempted oral intake, no medications taken for relief. Reports also 5-6 episodes of watery diarrhea since this morning as well as nausea with one episode of nonbloody nonbilious emesis. States that he ate some old sandwich meat last night at home and believes he may have food poisoning. Denies any fevers, chills, chest pain, cough, dyspnea, sore throat, urinary symptoms. No known recent sick contacts. No history of abdominal surgeries reported. Allergies/Adverse Reactions: Allergies Ibuprofen [From Advil] Adverse Reaction (Verified 10/14/19 20:32) Other Eyes swell Naproxen [From Aleve] Adverse Reaction (Verified 10/14/19 20:32) Other Eyes swell Home Medications: Ambulatory Orders Atorvastatin Calcium [Lipitor] 20 mg PO DAILY 05/29/18 Testosterone Cypionate 200 mg IM WKLY 05/29/18 Clonazepam 1 mg PO TID 07/02/19 Gabapentin [Neurontin] 300 mg PO TID 07/02/19 Magnesium 400 mg PO DAILY PRN #30 tab 01/05/20 Review of Systems - Review of Systems Review of Systems: 01/07/20 11:36 as per HPI All other Systems: Reviewed and Negative Past Medical History (General) - Patient Medical History Hx Seizures: No Hx Stroke: No Hx Dementia: No Hx Asthma: No Hx of COPD: No Hx Cardiac Disorders: No Hx Congestive Heart Failure: No Hx Pacemaker: No Hx Hypertension: No Hx Thyroid Disease: No Hx Diabetes: No Hx Gastroesophageal Reflux: No Hx Renal Disease: No Hx Cancer: No Hx of HIV: No Hx Hepatitis C: No Hx MRSA: No - Vaccination History Hx Tetanus, Diphtheria Vaccination: Yes - 2019 Hx Influenza Vaccination: No Hx Pneumococcal Vaccination: No - Social History Hx Tobacco Use: No Hx Chewing Tobacco Use: No Hx Alcohol Use: Yes - social Hx Substance Use: No Hx Substance Use Treatment: No Hx Depression: No Hx Physical Abuse: No Hx Emotional Abuse: No Hx Suspected Abuse: No Family Medical History - Family History Mother Family History: No Known Living Status: Still Living Hx Cardiac Disease: Yes - dad Father Family History: No Known Living Status: Still Living Physical Exam - Physical Exam General Appearance: Alert, Comfortable, No apparent distress Eye Exam: bilateral normal Ears, Nose, Throat: hearing grossly normal, normal ENT inspection, normal pharynx Neck: non-tender, full range of motion, supple, normal inspection Respiratory: chest non-tender, lungs clear, normal breath sounds, no respiratory distress, no accessory muscle use Cardiovascular/Chest: normal peripheral pulses, regular rate, rhythm, no edema, no gallop, no JVD, no murmur Peripheral Pulses: radial,right: 2+, radial,left: 2+ Gastrointestinal/Abdominal: soft, no organomegaly, abnormal bowel sounds - Hyperactive, tenderness - mild generalized w/o guarding or rebound Back Exam: normal inspection, no CVA tenderness, no vertebral tenderness Extremity: normal range of motion, non-tender, normal inspection, no pedal edema, no calf tenderness, normal capillary refill 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 On repeat examination he had moderate tenderness in the right upper quadrant region without guarding or rebound. His lab work was pertinent for total bilirubin of 1.7, 0.2 direct, 1.5 indirect. His serum WBC was 5000 without left shift or bandemia. Rapid strep testing was positive. Remainder of labs including LFTs, amylase, lipase were all unremarkable. -The patient's pain is now under good control with fentanyl 50 mcg IV x2. -CT imaging of the abdomen and pelvis revealed evidence of small nonobstructing gallstones without gallbladder dilatation, ductal dilatation, gallbladder wall thickening, surrounding fluid, etc. No other acute processes noted. -Given the patient's right upper quadrant pain and tenderness along with elevated bilirubin level and gallstones on CT imaging, I consulted with general surgery, Dr. Malone, who recommended further imaging with ultrasound of the abdomen. Will obtain ultrasound and call back. 01/07/20 15:42 -Ultrasound imaging of the abdomen revealed tiny gallbladder polyps but no evidence of gallstones or other acute process of the gallbladder or abdomen. Patient reports his pain has been resolved for some time now in the ED. Remained stable. Discussed again with Dr. Patel who advises patient can be discharged from the ED and follow-up in the surgery clinic. -For strep pharyngitis, will treat in the ED with Bicillin 1,200,000 units IM. Discharged home in stable condition, return warnings discussed at length. Gilberto Evans MD Billing #[id number] 01/07/20 11:25 Sodium Chloride 0.9% (Flush) [Saline Flush Syringe] 10 ml IV PRN PRN 01/07/20 11:50 RESPIRATORY PANEL 2 Stat 01/07/20 12:11 Hold Metformin x 48Hrs [id number] 01/07/20 13:12 Abdomen,Complete [US] Stat Laboratory Results - last 24 hr 01/07/20 01/07/20 01/07/20 11:35 11:35 11:35 WBC 5.6 RBC 5.11 Hgb 15.6 Hct 44.7 MCV 87.5 MCH 30.6 MCHC 35.0 RDW 14.2 Plt Count 318 MPV 7.4 Absolute Neuts (auto) 3.30 Absolute Lymphs (auto) 1.70 Absolute Monos (auto) 0.40 Absolute Eos (auto) 0.10 Absolute Basos (auto) 0.00 Neutrophils % 58.7 Lymphocytes % 30.5 Monocytes % 7.9 Eosinophils % 2.4 Basophils % 0.5 Sodium 139 Potassium 3.9 Chloride 104 Carbon Dioxide 24 Anion Gap 14.9 BUN 15 Creatinine 0.67 BUN/Creatinine Ratio 22.4 H Random Glucose 97 Serum Osmolality 278.3 Lactic Acid 0.8 Calcium 9.6 Total Bilirubin 1.7 H Direct Bilirubin 0.2 Indirect Bilirubin 1.5 H AST 34 ALT 43 Alkaline Phosphatase 93 Serum Total Protein 7.8 Albumin 4.7 Amylase 60 Lipase 34 Urine Color Urine Appearance Urine pH Ur Specific [place] Urine Protein Urine Glucose (UA) Urine Ketones Urine Blood Urine Nitrite Urine Bilirubin Urine Urobilinogen Ur Leukocyte Esterase Urine RBC Urine WBC Ur Epithelial Cells Amorphous Sediment Urine Bacteria Group A Strep Rapid 01/07/20 01/07/20 11:45 11:50 WBC RBC Hgb Hct MCV MCH MCHC RDW Plt Count MPV Absolute Neuts (auto) Absolute Lymphs (auto) Absolute Monos (auto) Absolute Eos (auto) Absolute Basos (auto) Neutrophils % Lymphocytes % Monocytes % Eosinophils % Basophils % Sodium Potassium Chloride Carbon Dioxide Anion Gap BUN Creatinine BUN/Creatinine Ratio Random Glucose Serum Osmolality Lactic Acid Calcium Total Bilirubin Direct Bilirubin Indirect Bilirubin AST ALT Alkaline Phosphatase Serum Total Protein Albumin Amylase Lipase Urine Color Yellow Urine Appearance Clear Urine pH 5.5 Ur Specific [place] >= 1.030 Urine Protein Negative Urine Glucose (UA) Negative Urine Ketones Negative Urine Blood Negative Urine Nitrite Negative Urine Bilirubin Negative Urine Urobilinogen 0.2 Ur Leukocyte Esterase Negative Urine RBC 0-1 Urine WBC 0 Ur Epithelial Cells 0-1 Amorphous Sediment 2+ Urine Bacteria 0 Group A Strep Rapid Positive H Departure - Departure Clinical Impression: Gastroenteritis, Gallstones, Strep pharyngitis, Gallbladder polyp Time of Disposition: 15:41 Disposition: Discharge to Home or Self Care Condition: Good Departure Forms: ED Discharge - Pt. Copy, ED Discharge - Work Release, Patient Portal Self Enrollment Instructions: Viral Gastroenteritis, Adult (DC), Gallstones (DC) Diet: resume usual diet Activity: increase activity as tolerated Referrals: John Hernadez III, MD [Primary Care Provider] - 1-2 Weeks Jarvis Patel MD [Active Staff] - 1-2 Weeks Home Medications: Ambulatory Orders Atorvastatin Calcium [Lipitor] 20 mg PO DAILY 05/29/18 Testosterone Cypionate 200 mg IM WKLY 05/29/18 Clonazepam 1 mg PO TID 07/02/19 Gabapentin [Neurontin] 300 mg PO TID 07/02/19 Magnesium 400 mg PO DAILY PRN #30 tab 01/05/20 Additional Instructions: Remain well-hydrated and gradually advance your diet and activity level as tolerated. Return to the ED if you develop any concerning symptoms such as worsening abdominal pain, intractable nausea and vomiting, fevers, chills, bloody vomiting or diarrhea, etc. follow-up with surgery clinic is recommended in the next 1 to 2 weeks for repeat evaluation of your abdominal pain and gallbladder. Follow-up with your primary care physician is recommended in the next 1 to 2 weeks for repeat evaluation or sooner as needed.
[2020-01-07] MEDS: SODIUM CHLORIDE 0.9% 1000ML 1,000 ML IVS ONE (11:59)
[2020-01-07] MEDS: SODIUM CHLORIDE 0.9% (FLUSH) 10 ML SYG IV PRN (12:00)
[2020-01-07] MEDS: ONDANSETRON INJ 4 MG/2 ML VIAL IV ONE (12:00)
[2020-01-07] MEDS: fentaNYL CITRATE INJ 50 MCG/ML AMP IV ONE ×2 (12:27→13:22)
--- NOTE | 2020-01-07 13:08 | CT ---
EXAM DESCRIPTION: Abdomen/Pelvis w/Contrast CLINICAL HISTORY: 34 years Male, generalized abdominal pain, elevated T bili TECHNIQUE: This exam was performed according to our departmental dose-optimization program, which includes automated exposure control, adjustment of the mA and/or kV according to patient size and/or use of iterative reconstruction technique. COMPARISON: 07/13/2019 FINDINGS: Visualized lung bases are grossly unremarkable. Cholelithiasis. The portal vein is patent. The liver is unremarkable. No suspicious hepatic lesion. No biliary dilatation. The spleen, pancreas and adrenal glands are unremarkable. Symmetric renal parenchymal enhancement. No hydronephrosis. No urolithiasis. Unremarkable bladder. No evidence of bowel obstruction or focal inflammatory change. No findings to suggest appendicitis. Normal appendix. No adenopathy. No focal fluid collection. No free air. Normal caliber abdominal aorta. No acute or suspicious osseous abnormality. Scattered degenerative changes present. IMPRESSION: No evidence of acute process in the abdomen or pelvis. Electronically signed by: Jame Rushing MD 01/07/2020 1:06 PM CDT
--- NOTE | 2020-01-07 14:20 | US ---
Study: Abdominal ultrasound. Indication: abdominal pain, n/v/d, elevated T bili Comparison: CT, same day Technique: Multiplanar, multi sequence sonogram of the abdomen obtained. Findings: The liver is normal in echogenicity without discrete mass. Several tiny gallbladder polyps suspected measuring up to 4 mm. No gallstones, gallbladder wall thickening, or pericholecystic edema. No intrahepatic biliary ductal dilatation. The common bile duct measures 4.5 mm in diameter. The bilateral kidneys are appropriate in echogenicity without hydronephrosis or nephrolithiasis. The visualized portions of the aorta and inferior vena cava are normal. The pancreas unremarkable. The spleen is normal. Impression: Several tiny gallbladder polyps. Electronically signed by: Reyes Causey MD 01/07/2020 2:18 PM CDT
[2020-01-07] MEDS: PENICILLIN BENZATHINE 1.2 MU 1.2 MU/2 ML SYG IM ONE (15:53)
[2020-01-07 16:59] VITALS: BP 108/76; TEMP 97.8; O2SAT 95
== END 2020-01-07 16:30 | disposition home or self-care (01) ==
LOC: ER 11:10
DX: K52.9 Noninfective gastroenteritis and colitis, unspecified (principal); J02.0 Streptococcal pharyngitis; K80.20 Calculus of gallbladder without cholecystitis without obstruction; Z88.6 Allergy status to analgesic agent; Z20.828 Contact with and (suspected) exposure to other viral communicable diseases
CPT/HCPCS: 36415; 74177; 76700; 80048; 80076; 81001; 82150; 83605; 83690; 85025; 87635; 87880; A4216; J0561; J2405; J3010; J7030

== ENCOUNTER 2020-02-14 11:15 | Emergency (ER) | payer OTHER ==
--- NOTE | 2020-02-14 11:38 | ED.PDOC ---
History of Present Illness - General Chief Complaint: Back Pain or Injury Stated Complaint: neck and back pain Time Seen by Provider: 02/14/20 11:35 Source: patient - History of Present Illness Initial Comments: PATIENT REPORTS THAT HE HURT HIS LOW BACK AND RIGHT SHOULDER LIFTING AN I BEAM AT WORK TODAY ABOUT. CO PAIN IN HIS UPPER THORACIC AREA AND LOWER LUMBAR AREA OF HIS BACK. HE ALSO C/O PAIN OVER HIS PROXIMAL RIGHT DELTOID AREA Allergies/Adverse Reactions: Allergies Ibuprofen [From Advil] Adverse Reaction (Verified 02/14/20 11:29) Other Eyes swell Naproxen [From Aleve] Adverse Reaction (Verified 02/14/20 11:29) Other Eyes swell Home Medications: Ambulatory Orders Atorvastatin Calcium [Lipitor] 20 mg PO DAILY 05/29/18 Testosterone Cypionate 200 mg IM WKLY 05/29/18 Clonazepam 1 mg PO TID 07/02/19 Gabapentin [Neurontin] 300 mg PO TID 07/02/19 Acetaminophen W/ Codeine [Tylenol W/ CODEINE #3] 1 ea PO Q6HR #20 ea 01/27/20 Methylprednisolone [Medrol Dose Gregg] 4 mg PO DAILY 6 Days #21 tab 01/27/20 Cyclobenzaprine HCl [Flexeril] 10 mg PO TID PRN #20 tab 02/14/20 HYDROcodone 10MG/APAP 325MG [[place] 10/325] 1 ea PO 02/14/20 Review of Systems - Review of Systems Constitutional: States: no symptoms reported, weakness EENTM: States: no symptoms reported Respiratory: States: no symptoms reported Cardiology: States: no symptoms reported Gastrointestinal/Abdominal: States: no symptoms reported Genitourinary: States: no symptoms reported Musculoskeletal: States: see HPI Skin: States: no symptoms reported Neurological: States: numbness - RIGHT ARM, tingling - RIGHT ARM. Denies: weakness Past Medical History (General) - Patient Medical History Hx Seizures: No Hx Stroke: No Hx Dementia: No Hx Asthma: No Hx of COPD: No Hx Cardiac Disorders: No Hx Congestive Heart Failure: No Hx Pacemaker: No Hx Hypertension: No Hx Thyroid Disease: No Hx Diabetes: No Hx Gastroesophageal Reflux: No Hx Renal Disease: No Hx Cancer: No Hx of HIV: No Hx Hepatitis C: No Hx MRSA: No - Vaccination History Hx Tetanus, Diphtheria Vaccination: Yes - 2019 Hx Influenza Vaccination: No Hx Pneumococcal Vaccination: No - Social History Hx Tobacco Use: No Hx Chewing Tobacco Use: No Hx Alcohol Use: Yes - social Hx Substance Use: No Hx Substance Use Treatment: No Hx Depression: No Hx Physical Abuse: No Hx Emotional Abuse: No Hx Suspected Abuse: No Family Medical History - Family History Mother Family History: No Known Living Status: Still Living Hx Cardiac Disease: Yes - dad Father Family History: No Known Living Status: Still Living Physical Exam - Physical Exam General Appearance: Alert, Comfortable, Well Developed, Well Nourished Neck Exam: non-tender, full range of motion, normal alignment, normal inspection, stiff neck Back Exam: normal inspection, muscle spasm - LUMBAR, BILATERAL Extremity Exam: tenderness - OVER RIGHT PROXIMAL DELTOID AREA Neurologic: neurology physician II-XII nml as tested, no motor/sensory deficits, alert, normal mood/affect, oriented x 3 Skin Exam: normal color, warm/dry Progress - Progress Progress: 02/14/20 12:12 REVIEWED PATIENTS ONLINE [employer] AWARE. HE HAS A LARGE NUMBER OF OPIOID RX, SEVERAL PER MONTH OVER THE LAST 6 MONTHS. IT APPEARS HIS USE HAS ACCELERATED OVER THIS TIME PERIOD. HE MADE NO MENTION OF HAVING CHRONIC BACK PAIN ON HIS INITIAL INTERVIEW OR THAT HE WAS BEING TREATED FOR CHRONIC PAIN. WHEN ASKED IF HE TOOK ANYTHING FOR HIS PAIN TODAY, HE STATED THAT HE TOOK IBUPROFEN AND IT DIDN'T HELP. HOWEVER HE LISTED IBUPROFEN AN ALLERGY. I AM VERY CONCERNED, THIS PATIENT EITHER HAS A SIGNIFICANT NARCOTIC DEPENDENCY, OR MEDICATIONS ARE BEING DIVERTED. RX OF 60 NORCO 10 ON EACH OF 02/06, 01/27, 01/14. T3 PRESCRIBED #20 ON 01/26. THAT'S 200 OPIOID PILLS IN THE LAST 30 DAYS. , THERE ARE SIMILAR # OF RX IN EACH OF THE LAST 8 MONTHS. 02/14/20 12:52 REVIEWED PATIENT OLD VISITS, SEEN NUMEROUS OTHER TIMES HERE IN THIS ER FOR SIMILAR COMPLAINTS. 02/14/20 13:03 ALTHOUGH PATIENT HAD NO TRAUMA TO HIS SHOULDER, HE REQUESTED AN XRAY. HE TOLD THE NURSING STAFF, HE DIDN'T THINK HE HAD JUST A STRAIN. I COUNSELED WITH THE PATIENT THAT EVEN IF HE HAD SOMETHING MORE THAN A STRAIN, XRAY WOULD NOT SHOW ANYTHING BUT BROKEN BONES AND THERE WAS NO REASON TO BELIEVE HE COULD HAVE A BROKEN BONE WITHOUT AN TRAUMA. ADVISED HIM THAT IF HE DID HAVE A LABRUM TEAR OR A ROTATOR CUFF TEAR FROM HIS INJURY, IT WOULD REQUIRE AN MRI TO SHOW IT AND THAT IS WHY IT IS SO IMPORTANT THAT HE REPORT HIS INJURY TO WORK. Departure - Departure Clinical Impression: Degeneration of lumbar intervertebral disc, Recurrent low back pain Acute back pain Qualifiers: Back pain location: low back pain Back pain laterality: bilateral Sciatica presence: without sciatica Qualified Code(s): M54.5 - Low back pain Shoulder pain, right Qualifiers: Chronicity: acute Qualified Code(s): M25.511 - Pain in right shoulder Disposition: Discharge to Home or Self Care Condition: Good Departure Forms: ED Discharge - Pt. Copy, Patient Portal Self Enrollment Instructions: DI for Low Back Pain, Low Back Pain in Adults Referrals: John Hernadez III, MD [Primary Care Provider] - 1-2 Weeks Prescriptions: Cyclobenzaprine HCl [Flexeril] 10 mg PO TID PRN #20 tab PRN Reason: Muscle Spasms Home Medications: Ambulatory Orders Atorvastatin Calcium [Lipitor] 20 mg PO DAILY 05/29/18 Testosterone Cypionate 200 mg IM WKLY 05/29/18 Clonazepam 1 mg PO TID 07/02/19 Gabapentin [Neurontin] 300 mg PO TID 07/02/19 Acetaminophen W/ Codeine [Tylenol W/ CODEINE #3] 1 ea PO Q6HR #20 ea 01/27/20 Methylprednisolone [Medrol Dose Gregg] 4 mg PO DAILY 6 Days #21 tab 01/27/20 Cyclobenzaprine HCl [Flexeril] 10 mg PO TID PRN #20 tab 02/14/20 HYDROcodone 10MG/APAP 325MG [[place] 10/325] 1 ea PO 02/14/20 Additional Instructions: RECOMMEND THAT YOU REPORT THIS INJURY AT WORK AND FOLLOW UP WITH THE PHYSICIAN RECOMMENDED BY YOUR EMPLOYER OR YOUR FAMILY PHYSICIAN. RECOMMEND OTC IBUPROFEN 800 MG THREE TIMES PER DAY.
[2020-02-14] MEDS ORDERED: KETOROLAC TROMETHAMINE INJ 60 MG/2 ML VIAL IM ONE (11:52)
[2020-02-14 12:40] VITALS: BP 133/85; TEMP 98.2; O2SAT 98
== END 2020-02-14 12:30 | disposition home or self-care (01) ==
LOC: ER 11:15
DX: M54.5 Low back pain (principal); M54.2 Cervicalgia; M25.511 Pain in right shoulder; G89.29 Other chronic pain; M51.36 Other intervertebral disc degeneration, lumbar region; M54.6 Pain in thoracic spine; R20.8 Other disturbances of skin sensation; Z88.6 Allergy status to analgesic agent

== ENCOUNTER 2020-02-18 08:14 | Emergency (ER) | payer OTHER ==
[2020-02-18] MEDS ORDERED: ONDANSETRON ODT 8 MG TAB SL ONE (08:31)
--- NOTE | 2020-02-18 08:41 | ED.PDOC ---
History of Present Illness - General Chief Complaint: Abdominal Pain Stated Complaint: abdominal pain, n/v Time Seen by Provider: 02/18/20 08:37 Source: patient Exam Limitations: no limitations - History of Present Illness Initial Comments: 3D N/V/D, APPROX 3-5 EPISODES OF EACH PER DAY. MYALGIAS, GRANT, ABDOMINAL CRAMPS (NOT PREMA PAIN). HOME ZOFRAN NOT HELPING THE NAUSEA. CAN'T KEEP FOOD OR LIQUIDS DOWN. PER CHART REVIEW, PT WAS HERE 4 D AGO FOR ACUTE MUSCULOSKELETAL STRAIN. 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 TODAY, PT IS ASKING FOR PAIN MEDICATION IN THE ER. HE STATES HE DID NOT TAKE HIS NORCO FOR NECK PAIN SINCE HE CAN'T KEEP ANYTHING DOWN AND IT WILL NOT BE ABSORBED. I EXPLAINED I CANNOT DUE TO OVERUSE CONCERNS. HE WAS OKAY WITH THIS. Severity: moderate Improving Factors: nothing Worsening Factors: eating Associated Symptoms: loss of appetite, nausea/vomiting Allergies/Adverse Reactions: Allergies Ibuprofen [From Advil] Adverse Reaction (Verified 02/18/20 08:29) Other Eyes swell Naproxen [From Aleve] Adverse Reaction (Verified 02/18/20 08:29) Other Eyes swell Home Medications: Ambulatory Orders Atorvastatin Calcium [Lipitor] 20 mg PO DAILY 05/29/18 Testosterone Cypionate 200 mg IM WKLY 05/29/18 Clonazepam 1 mg PO TID 07/02/19 Gabapentin [Neurontin] 300 mg PO TID 07/02/19 Acetaminophen W/ Codeine [Tylenol W/ CODEINE #3] 1 ea PO Q6HR #20 ea 01/27/20 Methylprednisolone [Medrol Dose Gregg] 4 mg PO DAILY 6 Days #21 tab 01/27/20 Cyclobenzaprine HCl [Flexeril] 10 mg PO TID PRN #20 tab 02/14/20 HYDROcodone 10MG/APAP 325MG [[place] 10/325] 1 ea PO 02/14/20 Review of Systems - Review of Systems Constitutional: States: malaise. Denies: fever EENTM: Denies: ear pain, nose congestion, throat pain, throat swelling Respiratory: Denies: cough, short of breath Cardiology: Denies: chest pain, palpitations Gastrointestinal/Abdominal: States: diarrhea, nausea, vomiting. Denies: abdominal pain Genitourinary: Denies: dysuria, frequency Musculoskeletal: States: neck pain - CHRONIC, UNCHANGED FROM BASELINE. , other - GENERAL MYALGIAS "BODY ACHES". Skin: Denies: lesions, rash Neurological: States: headache - FRONTAL. Denies: paresthesia Endocrine: Denies: increased thirst, increased urine, unexplained weight gain, unexplained weight loss Hematologic/Lymphatic: Denies: easy bleeding, easy bruising All other Systems: Reviewed and Negative Past Medical History (General) - Patient Medical History Hx Seizures: No Hx Stroke: No Hx Dementia: No Hx Asthma: No Hx of COPD: No Hx Cardiac Disorders: No Hx Congestive Heart Failure: No Hx Pacemaker: No Hx Hypertension: No Hx Thyroid Disease: No Hx Diabetes: No Hx Gastroesophageal Reflux: No Hx Renal Disease: No Hx Cancer: No Hx of HIV: No Hx Hepatitis C: No Hx MRSA: No Surgical History: no surgical history - Vaccination History Hx Tetanus, Diphtheria Vaccination: Yes - 2019 Hx Influenza Vaccination: Yes Hx Pneumococcal Vaccination: No - Social History Hx Tobacco Use: No Hx Chewing Tobacco Use: No Hx Alcohol Use: Yes - social Hx Substance Use: No Hx Substance Use Treatment: No Hx Depression: No Hx Physical Abuse: No Hx Emotional Abuse: No Hx Suspected Abuse: No - Activities of Daily Living Hospice Agency (if applicable):: None - Female History Patient is a Female of Child Bearing Age (10 -59 yrs old): No Family Medical History - Family History Mother Family History: No Known Living Status: Still Living Hx Cardiac Disease: Yes - dad Father Family History: No Known Living Status: Still Living Physical Exam - Physical Exam General Appearance: Alert, No apparent distress Eye Exam: bilateral normal Ears, Nose, Throat: hearing grossly normal, normal ENT inspection Neck: full range of motion, normal inspection Respiratory: lungs clear, normal breath sounds, no respiratory distress Cardiovascular/Chest: normal peripheral pulses, regular rate, rhythm, no murmur Peripheral Pulses: radial,right: 2+, radial,left: 2+ Gastrointestinal/Abdominal: normal bowel sounds, non tender, soft, no organomegaly, other - NOT A SURGICAL ABDOMEN. EXAM BENIGN. Rectal Exam: deferred Back Exam: normal inspection Extremity: normal range of motion, normal inspection Neurologic: no motor/sensory deficits, alert Skin Exam: normal color, warm/dry Lymphatic: no adenopathy Progress - Progress Progress: 02/18/20 10:45 VIRAL GASTROENTERITIS. CBC, CMP, LIPASE NO CONCERNS. SAFE FOR MAGMT AT HOME. I INSTRUCTED TO GET PLENTY OF REST, FLUIDS, TYLENOL PRN, HAND WASHING TO PREVENT SPREAD. PT STATES HE HAS ZOFRAN AT HOME, NO RX NEEDED. 02/18/20 10:46 BP WAS 100/60, MILDLY HYPOTENSIVE/DEHYDRATED; REPLETED W/ NS BOLUS. 02/18/20 10:47 Departure - Departure Clinical Impression: Viral gastroenteritis, Vomiting and diarrhea, Dehydration, Hypotension due to hypovolemia Disposition: Discharge to Home or Self Care Condition: Good Departure Forms: ED Discharge - Pt. Copy, Patient Portal Self Enrollment Instructions: DI for Abdominal Pain-Adult, Viral Gastroenteritis, Adult (DC) Diet: resume usual diet Activity: increase activity as tolerated Referrals: John Hernadez III, MD [Primary Care Provider] - 1-2 Weeks Home Medications: Ambulatory Orders Atorvastatin Calcium [Lipitor] 20 mg PO DAILY 05/29/18 Testosterone Cypionate 200 mg IM WKLY 05/29/18 Clonazepam 1 mg PO TID 07/02/19 Gabapentin [Neurontin] 300 mg PO TID 07/02/19 Acetaminophen W/ Codeine [Tylenol W/ CODEINE #3] 1 ea PO Q6HR #20 ea 01/27/20 Methylprednisolone [Medrol Dose Gregg] 4 mg PO DAILY 6 Days #21 tab 01/27/20 Cyclobenzaprine HCl [Flexeril] 10 mg PO TID PRN #20 tab 02/14/20 HYDROcodone 10MG/APAP 325MG [[place] 10/325] 1 ea PO 02/14/20
[2020-02-18] MEDS ORDERED: SODIUM CHLORIDE 0.9% 1000ML 1,000 ML IVS ONE (08:59)
[2020-02-18] MEDS ORDERED: ONDANSETRON INJ 4 MG/2 ML VIAL IV ONE (09:04)
[2020-02-18 11:09] VITALS: BP 112/76; TEMP 97.5; O2SAT 98
== END 2020-02-18 11:05 | disposition home or self-care (01) ==
LOC: ER 08:14
DX: A08.4 Viral intestinal infection, unspecified (principal); E86.0 Dehydration; I95.89 Other hypotension; E86.1 Hypovolemia; Z79.899 Other long term (current) drug therapy; Z88.6 Allergy status to analgesic agent
CPT/HCPCS: 36415; 80053; 83690; 85025; J2405; J7030

== ENCOUNTER → 2020-02-24 | Outpatient (CLI) | payer OTHER | LOC: GMAL 14:31 | PROVIDERS: ATTEND Family Medicine | DX: E53.8 Deficiency of other specified B group vitamins (principal); R94.5 Abnormal results of liver function studies ==

== ENCOUNTER 2020-02-27 08:45 | Emergency (ER) | payer OTHER ==
--- NOTE | 2020-02-27 09:23 | RAD ---
EXAM DESCRIPTION: Chest,1 View CLINICAL HISTORY: fever, cough, sore throat COMPARISON: 29 December 2019 TECHNIQUE: AP portable chest FINDINGS: The lungs are clear. There is no infiltrate or effusion. The heart is normal size. IMPRESSION: Normal portable chest Electronically signed by: John Mcconnell MD 02/27/2020 9:21 AM CDT
--- NOTE | 2020-02-27 09:48 | ED.PDOC ---
History of Present Illness - General Chief Complaint: General Time Seen by Provider: 02/27/20 08:47 Source: patient Exam Limitations: no limitations - History of Present Illness Initial Comments: The patient is a 34-year-old male presents emergency room secondary to sore throat and fever starting last night. He does have a mild headache and some body aches. No syncope. No nausea vomiting. No diarrhea. No rash. No chest pain. He does have a mild cough. He does report a history of asthma as a kid. No shortness of breath currently. Vital signs are stable. Timing/Duration: 24 hours Severity: moderate Improving Factors: nothing Worsening Factors: nothing Associated Symptoms: cough, fever/chills, loss of appetite Allergies/Adverse Reactions: Allergies Ibuprofen [From Advil] Adverse Reaction (Verified 02/18/20 08:29) Other Eyes swell Naproxen [From Aleve] Adverse Reaction (Verified 02/18/20 08:29) Other Eyes swell Home Medications: Ambulatory Orders Atorvastatin Calcium [Lipitor] 20 mg PO DAILY 05/29/18 Testosterone Cypionate 200 mg IM WKLY 05/29/18 Clonazepam 1 mg PO TID 07/02/19 Gabapentin [Neurontin] 300 mg PO TID 07/02/19 Acetaminophen W/ Codeine [Tylenol W/ CODEINE #3] 1 ea PO Q6HR #20 ea 01/27/20 Methylprednisolone [Medrol Dose Gregg] 4 mg PO DAILY 6 Days #21 tab 01/27/20 Cyclobenzaprine HCl [Flexeril] 10 mg PO TID PRN #20 tab 02/14/20 HYDROcodone 10MG/APAP 325MG [[place] 10/325] 1 ea PO 02/14/20 Albuterol Inhaler [Ventolin Hfa Inhaler] 2 puff INH Q4H PRN #1 inh 02/27/20 Ondansetron Odt [Zofran ODT] 4 mg PO Q8HR PRN #5 tab 02/27/20 predniSONE [Prednisone] 20 mg PO DAILY #3 tab 02/27/20 Review of Systems - Review of Systems Constitutional: States: malaise EENTM: States: no symptoms reported Respiratory: States: cough Cardiology: States: no symptoms reported Gastrointestinal/Abdominal: States: no symptoms reported Genitourinary: States: no symptoms reported Musculoskeletal: States: no symptoms reported Skin: States: no symptoms reported Neurological: States: headache Endocrine: States: no symptoms reported All other Systems: No Change from Baseline Past Medical History (General) - Patient Medical History Hx Seizures: No Hx Stroke: No Hx Dementia: No Hx Asthma: Yes Hx of COPD: No Hx Cardiac Disorders: No Hx Congestive Heart Failure: No Hx Pacemaker: No Hx Hypertension: No Hx Thyroid Disease: No Hx Diabetes: No Hx Gastroesophageal Reflux: No Hx Renal Disease: No Hx Cancer: No Hx of HIV: No Hx Hepatitis C: No Hx MRSA: No - Vaccination History Hx Tetanus, Diphtheria Vaccination: Yes - 2019 Hx Influenza Vaccination: Yes Hx Pneumococcal Vaccination: No - Social History Hx Tobacco Use: No Hx Chewing Tobacco Use: No Hx Alcohol Use: Yes - social Hx Substance Use: No Hx Substance Use Treatment: No Hx Depression: No Hx Physical Abuse: No Hx Emotional Abuse: No Hx Suspected Abuse: No Family Medical History - Family History Mother Family History: No Known Living Status: Still Living Hx Cardiac Disease: Yes - dad Father Family History: No Known Living Status: Still Living Physical Exam - Physical Exam General Appearance: Alert, Comfortable, No apparent distress Eye Exam: bilateral normal Ears, Nose, Throat: hearing grossly normal, nasal congestion, pharyngeal erythema Neck: full range of motion, supple Respiratory: lungs clear, normal breath sounds, no respiratory distress, no accessory muscle use Cardiovascular/Chest: normal peripheral pulses, regular rate, rhythm, no edema Peripheral Pulses: radial,right: 2+, radial,left: 2+ Gastrointestinal/Abdominal: non tender, soft Rectal Exam: deferred Back Exam: no CVA tenderness, no vertebral tenderness Extremity: normal range of motion, non-tender, normal inspection, no pedal edema, normal capillary refill 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 He does need to isolate for the next 2 weeks. He can use Tylenol preferably to control any fever. He needs to keep himself well-hydrated. Given his history of asthma he is going to be written for 3 days of oral prednisone along with a rescue inhaler and he will also be written for short prescription for Zofran in case he develops any nausea and vomiting. ER warnings are given for any significant worsening. Vital signs are reassuring. [email or web address] [id number] - Results/Orders Results/Orders: Rapid strep is negative. Coronavirus is positive. Single view chest x-ray is within normal limits. Departure - Departure Clinical Impression: COVID-19 Disposition: Discharge to Home or Self Care Condition: Fair Departure Forms: ED Discharge - Pt. Copy, Patient Portal Self Enrollment Instructions: Coronavirus Disease 2019 (COVID-19) Diet: regular diet Activity: increase activity as tolerated Referrals: John Hernadez III, MD [Primary Care Provider] - 1-2 Weeks Prescriptions: Ondansetron Odt [Zofran ODT] 4 mg PO Q8HR PRN #5 tab PRN Reason: Nausea--Moderate predniSONE [Prednisone] 20 mg PO DAILY #3 tab Albuterol Inhaler [Ventolin Hfa Inhaler] 2 puff INH Q4H PRN #1 inh PRN Reason: Shortness Of Breath Home Medications: Ambulatory Orders Atorvastatin Calcium [Lipitor] 20 mg PO DAILY 05/29/18 Testosterone Cypionate 200 mg IM WKLY 05/29/18 Clonazepam 1 mg PO TID 07/02/19 Gabapentin [Neurontin] 300 mg PO TID 07/02/19 Acetaminophen W/ Codeine [Tylenol W/ CODEINE #3] 1 ea PO Q6HR #20 ea 01/27/20 Methylprednisolone [Medrol Dose Gregg] 4 mg PO DAILY 6 Days #21 tab 01/27/20 Cyclobenzaprine HCl [Flexeril] 10 mg PO TID PRN #20 tab 02/14/20 HYDROcodone 10MG/APAP 325MG [[place] 10/325] 1 ea PO 02/14/20 Albuterol Inhaler [Ventolin Hfa Inhaler] 2 puff INH Q4H PRN #1 inh 02/27/20 Ondansetron Odt [Zofran ODT] 4 mg PO Q8HR PRN #5 tab 02/27/20 predniSONE [Prednisone] 20 mg PO DAILY #3 tab 02/27/20 Additional Instructions: The patient is a 34-year-old male presented emergency room secondary to what appears to be symptoms from COVID-19. He does need to isolate for the next 2 weeks. He can use Tylenol preferably to control any fever. He needs to keep himself well-hydrated. Given his history of asthma he is going to be written for 3 days of oral prednisone along with a rescue inhaler and he will also be written for short prescription for Zofran in case he develops any nausea and vomiting. ER warnings are given for any significant worsening. Vital signs are reassuring.
[2020-02-27 10:49] VITALS: BP 116/76; TEMP 99.6; O2SAT 96
== END 2020-02-27 10:20 | disposition home or self-care (01) ==
LOC: ER 08:45
DX: U07.1 COVID-19 (principal); Z20.828 Contact with and (suspected) exposure to other viral communicable diseases; J45.909 Unspecified asthma, uncomplicated; Z79.899 Other long term (current) drug therapy; Z88.8 Allergy status to other drugs, medicaments and biological substances

== ENCOUNTER 2020-03-18 19:38 | Emergency (ER) | payer OTHER ==
[2020-03-18] MEDS ORDERED: KETOROLAC TROMETHAMINE INJ 30 MG/ML VIAL IM ONE (19:48)
[2020-03-18] MEDS ORDERED: predniSONE 20 MG TAB PO ONE (19:49)
--- NOTE | 2020-03-18 19:51 | ED.PDOC ---
History of Present Illness - General Chief Complaint: General Stated Complaint: neck and left arm pain Time Seen by Provider: 03/18/20 19:48 Source: patient, RN notes reviewed, Vital Signs reviewed Additional Information: Patient presents to the ER because of neck pain having also left shoulder pain and tingling sensation left upper extremity This patient does have an herniated disc, this on his neck, he is has suffered from neck pain since July, and he is seeing a specialist which he used to be get epidural pain, but he woke up this morning having some neck pain, migraine versus headache, patient arrived POV no recent history of trauma or falls, or any other complaint - History of Present Illness Timing/Duration: other - today Severity: severe Improving Factors: nothing Worsening Factors: nothing Associated Symptoms: headaches Allergies/Adverse Reactions: Allergies Ibuprofen [From Advil] Adverse Reaction (Verified 02/18/20 08:29) Other Eyes swell Naproxen [From Aleve] Adverse Reaction (Verified 02/18/20 08:29) Other Eyes swell Home Medications: Ambulatory Orders Atorvastatin Calcium [Lipitor] 20 mg PO DAILY 05/29/18 Testosterone Cypionate 200 mg IM WKLY 05/29/18 Clonazepam 1 mg PO TID 07/02/19 Gabapentin [Neurontin] 300 mg PO TID 07/02/19 Acetaminophen W/ Codeine [Tylenol W/ CODEINE #3] 1 ea PO Q6HR #20 ea 01/27/20 Cyclobenzaprine HCl [Flexeril] 10 mg PO TID PRN #20 tab 02/14/20 HYDROcodone 10MG/APAP 325MG [Bethel 10/325] 1 ea PO 02/14/20 Albuterol Inhaler [Ventolin Hfa Inhaler] 2 puff INH Q4H PRN #1 inh 02/27/20 Ondansetron Odt [Zofran ODT] 4 mg PO Q8HR PRN #5 tab 02/27/20 predniSONE [Prednisone] 20 mg PO DAILY #3 tab 02/27/20 Acetaminophen W/ Codeine [Tylenol W/ CODEINE #3] 1 ea PO Q6HR #20 ea 03/18/20 Cyclobenzaprine HCl [Flexeril] 10 mg PO Q6HR #20 tab 03/18/20 Methylprednisolone [Medrol Dose Gregg] 4 mg PO DAILY 6 Days #21 tab 03/18/20 Review of Systems - Review of Systems Constitutional: States: no symptoms reported EENTM: States: no symptoms reported Respiratory: States: no symptoms reported Cardiology: States: no symptoms reported Gastrointestinal/Abdominal: States: no symptoms reported Genitourinary: States: no symptoms reported Musculoskeletal: States: no symptoms reported Skin: States: no symptoms reported Neurological: States: no symptoms reported Endocrine: States: no symptoms reported Hematologic/Lymphatic: States: no symptoms reported Past Medical History (General) - Patient Medical History Hx Seizures: No Hx Stroke: No Hx Dementia: No Hx Asthma: Yes Hx of COPD: No Hx Cardiac Disorders: No Hx Congestive Heart Failure: No Hx Pacemaker: No Hx Hypertension: No Hx Thyroid Disease: No Hx Diabetes: No Hx Gastroesophageal Reflux: No Hx Renal Disease: No Hx Cancer: No Hx of HIV: No Hx Hepatitis C: No Hx MRSA: No - Vaccination History Hx Tetanus, Diphtheria Vaccination: Yes - 2019 Hx Influenza Vaccination: Yes Hx Pneumococcal Vaccination: No - Social History Hx Tobacco Use: No Hx Chewing Tobacco Use: No Hx Alcohol Use: Yes - social Hx Substance Use: No Hx Substance Use Treatment: No Hx Depression: No Hx Physical Abuse: No Hx Emotional Abuse: No Hx Suspected Abuse: No Family Medical History - Family History Mother Family History: No Known Living Status: Still Living Hx Cardiac Disease: Yes - dad Father Family History: No Known Living Status: Still Living Physical Exam - Physical Exam General Appearance: Well Developed, Well Groomed, Well Hydrated, Well Nourished Ears, Nose, Throat: hearing grossly normal, normal ENT inspection, normal pharynx Neck: other - no rigidity, paraspinal pain, Respiratory: chest non-tender, lungs clear, normal breath sounds, no respiratory distress, no accessory muscle use Cardiovascular/Chest: normal peripheral pulses, regular rate, rhythm, no edema, no gallop, no JVD, no murmur Gastrointestinal/Abdominal: normal bowel sounds, non tender, soft, no organomegaly, no pulsatile mass Back Exam: normal inspection, no CVA tenderness Extremity: normal range of motion, non-tender, normal inspection, no pedal edema, no calf tenderness Neurologic: advanced developer II-XII nml as tested, no motor/sensory deficits, alert, normal mood/affect, oriented x 3, abnormal cerebellar tests Skin Exam: normal color, warm/dry Progress - Progress Progress: Neck pain presenting with neck pain thyroid yesterday had left shoulder, patient without any noted gross deficit did have some decreased gross on his left hand, but no other deficits, able to extend and flex and patient has had a long history of neck pain, and has been seen by specialist in the past when he gets neck injections CT scan of the neck which is not better than the MRI will show any acute cord compression fracture, the ct did not show acute cord compression of cervical fractures, I discussed with the patient that I will discharge him home with steroids muscle relaxer and pain medication and have him follow-up with his neck specialist 03/18/20 21:07 03/18/20 21:12 Patient requesting for pain medications Departure - Departure Clinical Impression: Neck pain Disposition: Discharge to Home or Self Care Condition: Fair Departure Forms: ED Discharge - Pt. Copy, Patient Portal Self Enrollment Referrals: John Hernadez III, MD [Primary Care Provider] - 1-2 Weeks Prescriptions: Cyclobenzaprine HCl [Flexeril] 10 mg PO Q6HR #20 tab Acetaminophen W/ Codeine [Tylenol W/ CODEINE #3] 1 ea PO Q6HR #20 ea Methylprednisolone [Medrol Dose Gregg] 4 mg PO DAILY 6 Days #21 tab Home Medications: Ambulatory Orders Atorvastatin Calcium [Lipitor] 20 mg PO DAILY 05/29/18 Testosterone Cypionate 200 mg IM WKLY 05/29/18 Clonazepam 1 mg PO TID 07/02/19 Gabapentin [Neurontin] 300 mg PO TID 07/02/19 Acetaminophen W/ Codeine [Tylenol W/ CODEINE #3] 1 ea PO Q6HR #20 ea 01/27/20 Cyclobenzaprine HCl [Flexeril] 10 mg PO TID PRN #20 tab 02/14/20 HYDROcodone 10MG/APAP 325MG [Bethel 10/325] 1 ea PO 02/14/20 Albuterol Inhaler [Ventolin Hfa Inhaler] 2 puff INH Q4H PRN #1 inh 02/27/20 Ondansetron Odt [Zofran ODT] 4 mg PO Q8HR PRN #5 tab 02/27/20 predniSONE [Prednisone] 20 mg PO DAILY #3 tab 02/27/20 Acetaminophen W/ Codeine [Tylenol W/ CODEINE #3] 1 ea PO Q6HR #20 ea 03/18/20 Cyclobenzaprine HCl [Flexeril] 10 mg PO Q6HR #20 tab 03/18/20 Methylprednisolone [Medrol Dose Gregg] 4 mg PO DAILY 6 Days #21 tab 03/18/20 Additional Instructions: follow up with specialist, return to the ER immediately if there is any severe neck pain tingling sensation no presently is unable to move the upper extremities fever chills nuchal rigidity rash or any other concern
[2020-03-18 19:52] VITALS: TEMP 97.8
[2020-03-18] MEDS ORDERED: diazePAM 5 MG TAB PO ONE (20:24)
[2020-03-18] MEDS ORDERED: diazePAM 5 MG TAB ONE ×2 (20:37→20:38)
--- NOTE | 2020-03-18 20:52 | CT ---
EXAM: NONCONTRAST CERVICAL SPINE CT EXAMINATION. CLINICAL INDICATION: Neck pain. COMPARISON: Compared to the cervical spine CT examination of December 29, 2019. TECHNIQUE: Using low-dose helical technique, thin section axial images were performed through the cervical spine without the administration of intravenous or subarachnoid contrast material. CT sagittal coronal reconstructions were also obtained. FINDINGS: Unchanged upper cervical kyphosis. Mild to moderate degenerative disease in the mid and lower cervical spine. No fractures, spondylolisthesis or facet joint dislocation. No hemorrhage in the spinal canal. Precervical soft tissue thickness is normal. The odontoid process, preodontoid space and C1 vertebral body are intact. The occipital condyles are intact. Partially visualized bony structures of the skull base appear normal. Soft tissue structures of the neck are grossly normal on this noncontrast examination. Pulmonary apices are clear. IMPRESSION: 1. No fractures, spondylolisthesis or facet joint dislocation. If clinical concern persists, cervical spine MRI should be considered for further evaluation as clinically warranted. This exam was performed according to our departmental dose-optimization program, which includes automated exposure control, adjustment of the mA and/or kV according to patient size and/or use of iterative reconstruction technique. Electronically signed by: Edwin Hurd MD 03/18/2020 8:50 PM [id number]
[2020-03-18] MEDS ORDERED: ACETAMINOPHEN W/COD #3 TAB 1 EA TAB PO ONE (21:18)
[2020-03-18 21:24] VITALS: BP 112/77; O2SAT 98
== END 2020-03-18 21:24 | disposition home or self-care (01) ==
LOC: ER 19:38
DX: M54.2 Cervicalgia (principal); M25.512 Pain in left shoulder; R20.0 Anesthesia of skin; M47.812 Spondylosis without myelopathy or radiculopathy, cervical region; J45.909 Unspecified asthma, uncomplicated; Z79.899 Other long term (current) drug therapy; Z88.6 Allergy status to analgesic agent
CPT/HCPCS: 72125; J1885; J7512

== ENCOUNTER 2020-04-16 15:37 | Emergency (ER) | payer SELFPAY ==
[2020-04-16 17:33] VITALS: O2SAT 99
[2020-04-16] MEDS ORDERED: DEXAMETHASONE INJ 10 MG/ML VIAL IM ONE (17:36)
[2020-04-16] MEDS ORDERED: HYDROcodone 10MG/APAP 325MG 1 EA TAB PO ONE (17:36)
--- NOTE | 2020-04-16 17:39 | ED.PDOC ---
History of Present Illness - General Chief Complaint: General Stated Complaint: neck pain Time Seen by Provider: 04/16/20 17:33 Source: patient, RN notes reviewed, Vital Signs reviewed Exam Limitations: no limitations - History of Present Illness Initial Comments: 34-year-old male with past medical history of cervical herniated disc. States he was diagnosed with a herniated disc in September 2019. He has had injections in the area without improvement. States he has had pain in his neck that radiates to the left arm and numbness and tingling to the left fourth and fifth digits for the past 6 months. Pain seems to be worse this morning. He denies any recent injury or trauma. States he has taken ibuprofen for the pain at home with minimal relief. Denies fever, headache, chest pain or shortness of breath or other concerns at this time. He is waiting for his insurance to start in May and has a plan to see a spine surgeon for further evaluation. Allergies/Adverse Reactions: Allergies Ibuprofen [From Advil] Adverse Reaction (Verified 04/16/20 16:22) Other Eyes swell Naproxen [From Aleve] Adverse Reaction (Verified 04/16/20 16:22) Other Eyes swell Home Medications: Ambulatory Orders Atorvastatin Calcium [Lipitor] 20 mg PO DAILY 05/29/18 Gabapentin [Neurontin] 300 mg PO TID 07/02/19 Acetaminophen W/ Codeine [Tylenol W/ CODEINE #3] 1 tablet PO Q6H PRN #20 04/16/20 Methylprednisolone [Medrol Dose Gregg] 4 mg PO DAILY 6 Days #21 tab 04/16/20 Review of Systems - Review of Systems Constitutional: Denies: chills, fever EENTM: Denies: blurred vision, ear pain Respiratory: Denies: cough Neurological: States: see HPI. Denies: headache All other Systems: Reviewed and Negative Past Medical History (General) - Patient Medical History Hx Seizures: No Hx Stroke: No Hx Dementia: No Hx Asthma: Yes Hx of COPD: No Hx Cardiac Disorders: No - hyperlipidemia Hx Congestive Heart Failure: No Hx Pacemaker: No Hx Hypertension: No Hx Thyroid Disease: No Hx Diabetes: No Hx Gastroesophageal Reflux: No Hx Renal Disease: No Hx Cancer: No Hx of HIV: No Hx Hepatitis C: No Hx MRSA: No - Vaccination History Hx Tetanus, Diphtheria Vaccination: Yes - 2019 Hx Influenza Vaccination: Yes Hx Pneumococcal Vaccination: No - Social History Hx Tobacco Use: No Hx Chewing Tobacco Use: No Hx Alcohol Use: Yes - social Hx Substance Use: No Hx Substance Use Treatment: No Hx Depression: No Hx Physical Abuse: No Hx Emotional Abuse: No Hx Suspected Abuse: No Family Medical History - Family History Mother Family History: No Known Living Status: Still Living Hx Cardiac Disease: Yes - dad Father Family History: No Known Living Status: Still Living Physical Exam - Physical Exam General Appearance: Alert, Comfortable, No apparent distress, Other - seated in chair in no distress Neck: other - TTP diffusely to posterior neck. Respiratory: chest non-tender, lungs clear, normal breath sounds, no respiratory distress Cardiovascular/Chest: regular rate, rhythm Peripheral Pulses: radial,right: 2+, radial,left: 2+ Extremity: other - 5/5 recruiting operations consultant strength on right and 4/5 recruiting operations consultant strength on the left. He has 2+ radial pulses bilaterally and cap refill is less than 2 seconds. He reports decreased sensation to light touch to the left fourth and fifth fingers and ulnar side of the palm. There is no elbow or shoulder tenderness. Neurologic: alert, normal mood/affect Skin Exam: normal color, warm/dry Progress - Progress Progress: 04/16/20 17:42 Patient reports history of neck pain that radiates to the left arm with numbness and tingling to the left fourth and fifth digit for the past 6 months. He has had an MRI showing a cervical disc herniation. He has tried injections and area without improvement and plans to see a neurosurgeon in May for continued evaluation and treatment of this. I have discussed with patient will treat with steroids with an injection of Decadron here and start Medrol Dosepak at home and have asked him to follow-up with his PCP in 1 to 2 days for continued evaluation. Strict return precautions given. Departure - Departure Clinical Impression: Cervical radiculopathy, Paresthesia Time of Disposition: 17:43 Disposition: Discharge to Home or Self Care Condition: Good Departure Forms: ED Discharge - Pt. Copy, Patient Portal Self Enrollment Instructions: Herniated Disc (DC) Diet: resume usual diet Activity: increase activity as tolerated Referrals: John Hernadez III, MD [Primary Care Provider] - 1-2 Days Prescriptions: Methylprednisolone [Medrol Dose Gregg] 4 mg PO DAILY 6 Days #21 tab Acetaminophen W/ Codeine [Tylenol W/ CODEINE #3] 1 tablet PO Q6H PRN #20 PRN Reason: Pain Home Medications: Ambulatory Orders Atorvastatin Calcium [Lipitor] 20 mg PO DAILY 05/29/18 Gabapentin [Neurontin] 300 mg PO TID 07/02/19 Acetaminophen W/ Codeine [Tylenol W/ CODEINE #3] 1 tablet PO Q6H PRN #20 04/16/20 Methylprednisolone [Medrol Dose Gregg] 4 mg PO DAILY 6 Days #21 tab 04/16/20
[2020-04-16 18:05] VITALS: BP 108/62; TEMP 97.2
== END 2020-04-16 18:04 | disposition home or self-care (01) ==
LOC: ER 15:37
DX: M54.12 Radiculopathy, cervical region (principal); R20.2 Paresthesia of skin; E78.5 Hyperlipidemia, unspecified; J45.909 Unspecified asthma, uncomplicated; Z79.899 Other long term (current) drug therapy; Z88.6 Allergy status to analgesic agent

== ENCOUNTER 2020-06-19 13:23 | Emergency (ER) | payer OTHER ==
--- NOTE | 2020-06-19 13:25 | ED.PDOC ---
History of Present Illness - General Stated Complaint: Back pain with paresthesias of the lower extremities Time Seen by Provider: 06/19/20 13:24 Additional Information: History of lower cervical disc disease under the care of a specialist icu - History of Present Illness Initial Comments: Patient complains of pain in his lower back with numbness and tingling of both lower extremities. This began about 2 days ago. 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 He has had pain in his lower back for about a year. He has not had any evaluation for this. Patient complains of mostly paresthesias down the backs of both legs. He is not complain of any specific weakness other than when he standing for a long time he feels like his legs may give out but they have not done so. He denies bowel or bladder dysfunction. Patient has a known history of allergy to Aleve but cannot tolerate Ibuprofen. Timing/Duration: other - 2 days Severity: moderate Improving Factors: rest Worsening Factors: movement Associated Symptoms: denies symptoms Allergies/Adverse Reactions: Allergies Ibuprofen [From Advil] Adverse Reaction (Verified 06/19/20 13:42) Other Eyes swell Naproxen [From Aleve] Adverse Reaction (Verified 06/19/20 13:42) Other Eyes swell Home Medications: Ambulatory Orders Atorvastatin Calcium [Lipitor] 20 mg PO DAILY 05/29/18 Gabapentin [Neurontin] 300 mg PO TID 07/02/19 Acetaminophen W/ Codeine [Tylenol W/ CODEINE #3] 1 tablet PO Q6H PRN #20 04/16/20 Methylprednisolone [Medrol Dose Gregg] 4 mg PO DAILY 6 Days #21 tab 04/16/20 Methocarbamol [Robaxin] 750 mg PO QID 7 Days #28 tab 06/19/20 Review of Systems - Review of Systems Constitutional: States: no symptoms reported EENTM: States: no symptoms reported Respiratory: States: no symptoms reported Cardiology: States: no symptoms reported Gastrointestinal/Abdominal: States: no symptoms reported Genitourinary: States: no symptoms reported Musculoskeletal: States: see HPI Skin: States: no symptoms reported Neurological: States: see HPI Endocrine: States: no symptoms reported Hematologic/Lymphatic: States: no symptoms reported Past Medical History (General) - Patient Medical History Hx Seizures: No Hx Stroke: No Hx Dementia: No Hx Asthma: Yes Hx of COPD: No Hx Cardiac Disorders: No - hyperlipidemia Hx Congestive Heart Failure: No Hx Pacemaker: No Hx Hypertension: No Hx Thyroid Disease: No Hx Diabetes: No Hx Gastroesophageal Reflux: No Hx Renal Disease: No Hx Cancer: No Hx of HIV: No Hx Hepatitis C: No Hx MRSA: No - Vaccination History Hx Tetanus, Diphtheria Vaccination: Yes - 2019 Hx Influenza Vaccination: Yes Hx Pneumococcal Vaccination: No - Social History Hx Tobacco Use: No Hx Chewing Tobacco Use: No Hx Alcohol Use: Yes - social Hx Substance Use: No Hx Substance Use Treatment: No Hx Depression: No Hx Physical Abuse: No Hx Emotional Abuse: No Hx Suspected Abuse: No Family Medical History - Family History Mother Family History: No Known Living Status: Still Living Hx Cardiac Disease: Yes - dad Father Family History: No Known Living Status: Still Living Physical Exam - Physical Exam General Appearance: Alert, Comfortable Eye Exam: bilateral normal Ears, Nose, Throat: hearing grossly normal, normal ENT inspection Neck: non-tender, full range of motion Respiratory: lungs clear Cardiovascular/Chest: regular rate, rhythm Gastrointestinal/Abdominal: normal bowel sounds, non tender Back Exam: normal inspection, no CVA tenderness, decreased range of motion, muscle spasm, other - Moderately tender in the lower lumbar and sacral paraspinous muscles bilaterally. Range of motion is modestly reduced. 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 Reflexes are normal. Skin Exam: normal color Lymphatic: no adenopathy Progress - Progress Progress: 06/19/20 13:40 Ketorolac 60 mg IM. 06/19/20 14:20 Patient was also advised to take 600 mg of [id number] ibuprofen 3-4 times a day with food for his pain. - Results/Orders Results/Orders: Electrocardiogram normal sinus rhythm, 97/min, mild right axis deviation, no significant interval abnormalities, no STT changes. Departure - Departure Clinical Impression: Back pain, Disc disease with myelopathy, lumbar Time of Disposition: 13:41 Disposition: Discharge to Home or Self Care Condition: Excellent Departure Forms: ED Discharge - Pt. Copy, Patient Portal Self Enrollment Instructions: Low Back Pain (DC) Referrals: John Hernadez III, MD [Family Provider] - 1-2 Weeks Prescriptions: Methocarbamol [Robaxin] 750 mg PO QID 7 Days #28 tab Home Medications: Ambulatory Orders Atorvastatin Calcium [Lipitor] 20 mg PO DAILY 05/29/18 Gabapentin [Neurontin] 300 mg PO TID 07/02/19 Acetaminophen W/ Codeine [Tylenol W/ CODEINE #3] 1 tablet PO Q6H PRN #20 04/16/20 Methylprednisolone [Medrol Dose Gregg] 4 mg PO DAILY 6 Days #21 tab 04/16/20 Methocarbamol [Robaxin] 750 mg PO QID 7 Days #28 tab 06/19/20 Additional Instructions: No work today. Rest your back, activity as tolerated. Avoid heavy lifting as much as you can. See your specialist icu in [place] as soon as possible. If you develop severe weakness, loss of sensation, difficulty with your bowels or bladder then return to the emergency department.
[2020-06-19] MEDS ORDERED: KETOROLAC TROMETHAMINE INJ 60 MG/2 ML VIAL IM ONE (13:40)
[2020-06-19 13:42] VITALS: BP 110/78; TEMP 97.1
[2020-06-19 14:26] VITALS: O2SAT 98
== END 2020-06-19 14:18 | disposition home or self-care (01) ==
LOC: ER 13:23
DX: M51.06 Intervertebral disc disorders with myelopathy, lumbar region (principal); E78.5 Hyperlipidemia, unspecified; J45.909 Unspecified asthma, uncomplicated; Z79.899 Other long term (current) drug therapy; Z88.6 Allergy status to analgesic agent
CPT/HCPCS: 93005; J1885